=== PATIENT | female | born 1955 | race Caucasian/White ===

== ENCOUNTER 2020-10-26 21:16 | Emergency (ER) | payer BC ==
--- NOTE | 2020-10-26 22:13 | EDM.PDOC ---
ED HPI GENERAL MEDICAL PROBLEM - General Chief Complaint: Skin Complaint Stated Complaint: ALERGIC REACTION Time Seen by Provider: 10/26/20 21:39 Source of Information: Reports: Patient History Limitations: Reports: No Limitations - History of Present Illness INITIAL COMMENTS - FREE TEXT/NARRATIVE: Presents emergency room today due to concern about contrast dye reaction she sta renee that she had CT scanning done yesterday and today around noon she started noticing a rash she said it did not even occur to her until around 2 PM when she took an Emli she denies any respiratory symptoms no shortness of breath difficulty breathing wheezing no throat symptoms or oral swelling symptoms she says her only concern is related to a facial rash arm rash shoulders she is not sick she says it does not include her abdomen back or legs at this point. Based on previous episodes when she had PET scans done she said she had the same type of reaction and she did not think that it would happen with the CT dye PMHhypertension glaucoma endometrial clear cell carcinoma Medlisinopril and timolol optic to the right eye Medication allergysulfa denies--tob/etoh/drug use Onset: Today, Sudden - Related Data Allergies Allergy/AdvReac Type Severity Reaction Status Date / Time Iodinated Contrast Media AdvReac Hives Verified 10/26/20 21:31 [Iodinated Contrast- Oral and IV Dye] Sulfa (Sulfonamide AdvReac Hives Verified 10/26/20 21:31 Antibiotics) Home Meds: Home Meds Timolol [Betimol] 1 drop EYERT DAILY 11/20/18 [History] lisinopriL [Lisinopril] 20 mg PO DAILY 10/26/20 [History] Past Medical History HEENT History: Reports: Impaired Vision Cardiovascular History: Reports: Hypertension Musculoskeletal History: Reports: Other (See Below) Other Musculoskeletal History: right knee pain Oncologic (Cancer) History: Reports: Other (See Below) Other Oncologic History: endometrial - Infectious Disease History Infectious Disease History: Reports: Chicken Pox - Past Surgical History Head Surgeries/Procedures: Reports: None HEENT Surgical History: Reports: None Cardiovascular Surgical History: Reports: None Musculoskeletal Surgical History: Reports: None Oncologic Surgical History: Reports: None Dermatological Surgical History: Reports: None Social & Family History - Tobacco Use Tobacco Use Status *Q: Never Tobacco User Second Hand Smoke Exposure: No - Caffeine Use Caffeine Use: Reports: None - Recreational Drug Use Recreational Drug Use: No ED ROS GENERAL - Review of Systems Review Of Systems: Comprehensive ROS is negative, except as noted in HPI. Constitutional: Reports: No Symptoms HEENT: Reports: No Symptoms Respiratory: Reports: No Symptoms. Denies: Shortness of Breath, Wheezing, Cough Cardiovascular: Reports: No Symptoms Endocrine: Reports: No Symptoms GI/Abdominal: Reports: No Symptoms : Reports: No Symptoms Musculoskeletal: Reports: No Symptoms Skin: Reports: Pruritis, Rash Neurological: Reports: No Symptoms Psychiatric: Reports: No Symptoms Hematologic/Lymphatic: Reports: No Symptoms Immunologic: Reports: No Symptoms ED EXAM, SKIN/RASH Exam: See Below Exam Limited By: No Limitations General Appearance: Alert, WD/WN, No Apparent Distress Eye Exam: Bilateral Eye: EOMI, Normal Inspection, PERRL Ears: Normal External Exam, Hearing Grossly Normal Nose: Normal Inspection Throat/Mouth: Normal Inspection, Normal Oropharynx, Normal Voice, No Airway Compromise Head: Atraumatic, Normocephalic Neck: Normal Inspection, Supple, Full Range of Motion Respiratory/Chest: No Respiratory Distress, Lungs Clear (No wheezes noted with forced expiration), Normal Breath Sounds Cardiovascular: Normal Peripheral Pulses, Regular Rate, Rhythm, No Edema, No Murmur Peripheral Pulses: 2+: Radial (L), Radial (R) GI/Abdominal: Normal Bowel Sounds, Soft, Non-Tender (Female) Exam: Deferred Rectal (Female) Exam: Deferred Back Exam: Normal Inspection (No evidence of rash on the back although posterior upper shoulder area does have some minimal whelps raised areas) Extremities: No Pedal Edema, Normal Capillary Refill, Other (As noted rash maculopapular nature to upper extremities and shoulder area up into the neck no lower extremity involvement is noted) Neurological: Alert, Oriented, Normal Cognition, No Motor/Sensory Deficits Psychiatric: Normal Affect, Normal Mood Skin: Warm, Dry, Intact, Normal Color, Rash (Maculopapular rash to upper extremity shoulder area and facial areas and neck) Course - Vital Signs Text/Narrative:: Joe with patient home care measures to include Benadryl [id number] 1 to 2 tablets may be used every 6 hours but cautioned against drowsiness as a side effect may want to only use Benadryl at night and use Meli in the morning. Is generally will give patient a prednisone burst is recommended that she take initial dose tonight but tomorrow take dose before noon and then in the morning thereafter to decrease side effect of sleep interruption patient verbalized understanding agree with plan of care ready for discharge Last Recorded V/S: Last Vital Signs Temp 98.4 F 10/26/20 21:32 Pulse 90 10/26/20 21:32 Resp 14 10/26/20 21:32 BP 143/83 H 10/26/20 21:32 Pulse Ox 97 10/26/20 21:32 Departure - Departure Time of Disposition: 22:15 Disposition: Home, Self-Care 01 Condition: Good Clinical Impression: Allergic reaction to contrast dye, Rash due to allergy - Discharge Information *PRESCRIPTION DRUG MONITORING PROGRAM REVIEWED*: Not Applicable *COPY OF PRESCRIPTION DRUG MONITORING REPORT IN PATIENT JESSICA: Not Applicable Instructions: Drug Rash, Rash, Adult, [id number] Referrals: Byron Saini MD [Primary Care Provider] - Additional Instructions: As discussed it is recommended that you use Benadryl [id number] may use 1 to 2 tablets every 6 hours although this may cause some excessive drowsiness. That she may want to use 1 to 2 tablets at bedtime. And use your Meli in the morning for daytime control. Additionally you can use [id number] Pepcid or famotidine--this is typically used for stomach/reflux symptoms but it is also an antihistamine and when used in combination with Benadryl or Meli he may get better antihistamine effects I provided you with a prescription for prednisone that you may obtain out of the [facility] start prescription tonight, tomorrow take that dose before noon and then thereafter every morning with breakfast Please note that contrast dye will be placed as a medication allergy at this time on your chart. It is determined you needed scans that utilize a contrast dye that you discuss with your family physician/primary care provider premedication post medications Sepsis Event Note (ED) - Evaluation Sepsis Screening Result: No Definite Risk - Focused Exam Vital Signs: Vital Signs Temp Pulse Resp BP Pulse Ox 10/26/20 21:32 98.4 F 90 14 143/83 H 97 10/26/20 21:29 98.4 F 90 14 143/83 H 97
== END 2020-10-26 22:30 | disposition home or self-care (01) ==
LOC: JP.ED 21:16
DX: L27.1 Localized skin eruption due to drugs and medicaments taken internally (principal); T50.8X5A Adverse effect of diagnostic agents, initial encounter; I10 Essential (primary) hypertension; Z88.2 Allergy status to sulfonamides; Z79.899 Other long term (current) drug therapy
CPT/HCPCS: 99283

== ENCOUNTER 2020-12-05 17:07 | Emergency (ER) | payer BC ==
[2020-12-05] MEDS ORDERED: Sodium Chloride 0.9% 1,000 ML IV STA (17:44)
--- NOTE | 2020-12-05 18:03 | EDM.PDOC ---
ED HPI GENERAL MEDICAL PROBLEM - General Chief Complaint: General Stated Complaint: SURGERY November, TODAY CHILLS, FEVER, VOMITING Time Seen by Provider: 12/05/20 17:29 Source of Information: Reports: Patient History Limitations: Reports: No Limitations - History of Present Illness INITIAL COMMENTS - FREE TEXT/NARRATIVE: 65 presents to ER with 24 hours of chills, N/V. She is 3 weeks post surgery where her vagina, bladder and competed hysterectomy was completed. All was going well until yesterday. She has had normal bowel movements until 2 days ago and has not had a BM since. Urine is collected in Urostomy and has been very dark in color since procedure. She did have flank pain last week mild in nature. afebrile. - Related Data Allergies Allergy/AdvReac Type Severity Reaction Status Date / Time Iodinated Contrast Media AdvReac Hives Verified 10/26/20 21:31 [Iodinated Contrast- Oral and IV Dye] Sulfa (Sulfonamide AdvReac Hives Verified 10/26/20 21:31 Antibiotics) Home Meds: Home Meds Timolol [Betimol] 1 drop EYERT DAILY 11/20/18 [History] lisinopriL [Lisinopril] 20 mg PO DAILY 10/26/20 [History] Acetaminophen [Tylenol Extra Strength] 1,000 mg PO Q6H PRN 12/05/20 [History] Apixaban [Eliquis] 2.5 mg PO BID 12/05/20 [History] Ondansetron [Zofran ODT] 4 mg PO Q6H PRN 12/05/20 [History] polyethylene glycoL 3350 [Glycolax] 17 gm PO ASDIRECTED PRN 12/05/20 [History] Past Medical History HEENT History: Reports: Impaired Vision Cardiovascular History: Reports: Hypertension Musculoskeletal History: Reports: Other (See Below) Other Musculoskeletal History: right knee pain Oncologic (Cancer) History: Reports: Bladder, Uterine Other Oncologic History: endometrial - Infectious Disease History Infectious Disease History: Reports: Chicken Pox - Past Surgical History Head Surgeries/Procedures: Reports: None HEENT Surgical History: Reports: None Cardiovascular Surgical History: Reports: None Musculoskeletal Surgical History: Reports: None Oncologic Surgical History: Reports: None Dermatological Surgical History: Reports: None Social & Family History - Tobacco Use Tobacco Use Status *Q: Never Tobacco User - Caffeine Use Caffeine Use: Reports: Soda - Recreational Drug Use Recreational Drug Use: No ED ROS GENERAL - Review of Systems Review Of Systems: See Below Constitutional: Reports: Chills, Fatigue. Denies: Fever Respiratory: Denies: Shortness of Breath, Wheezing Cardiovascular: Denies: Chest Pain GI/Abdominal: Reports: Abdominal Pain ED EXAM, GENERAL - Physical Exam Exam: See Below Exam Limited By: No Limitations General Appearance: Alert, WD/WN, No Apparent Distress Head: Atraumatic, Normocephalic Neck: Normal Inspection, Supple, Non-Tender, Full Range of Motion. No: Lymphadenopathy (R), Lymphadenopathy (L) Respiratory/Chest: No Respiratory Distress, Lungs Clear, Normal Breath Sounds, No Accessory Muscle Use, Chest Non-Tender. No: Crackles, Rhonchi, Wheezing Cardiovascular: No Murmur, Tachycardia GI/Abdominal: Soft, No Distention, Tender (generalized), Abnormal Bowel Sounds (hypoactive), Other (incision healing non tender to palpate, no erythema. ) ED GENERAL MEDICAL PROCEDURES - Splinting Right Lower Extremity Pre-procedure NV status: Normal Post-procedure NV status: Normal Splint Type: Pre-Fabricated Splint Material: Other (pre-fabricated ankle stirrup) Splint Design: Stirrup Applied & Form Fitted By: Nurse Provider Post-Splint Application NV Check: NV Status Normal, Good Position Complications: No Course - Vital Signs Last Recorded V/S: Last Vital Signs Temp 36.8 C 12/05/20 20:41 Pulse 119 H 12/05/20 22:21 Resp 20 12/05/20 20:41 BP 127/77 12/05/20 22:21 Pulse Ox 96 12/05/20 22:21 - Orders/Labs/Meds Orders: Active Orders 24 hr Category Date Time Status CULTURE BLOOD [BC] Urgent Lab 12/05/20 17:55 Received CULTURE BLOOD [BC] Urgent Lab 12/05/20 18:08 Received CULTURE URINE [RM] Urgent Lab 12/05/20 20:04 Received Sodium Chloride 0.9% [Normal Saline] 1,000 ml Med 12/05/20 20:15 Active IV ASDIRECTED Blood Culture x2 Reflex Set [OM.PC] Urgent Oth 12/05/20 17:44 Ordered Medication Orders Sodium Chloride (Normal Saline) 1,000 mls @ 175 mls/hr IV ASDIRECTED FIDENCIO Last Admin: 12/05/20 20:07 Dose: 175 mls/hr Documented by: SAGAR Labs: Laboratory Tests 12/05/20 12/05/20 12/05/20 Range/Units 17:55 17:55 17:55 WBC 18.9 H (4.5-11.0) K/uL RBC 3.23 L (3.30-5.50) M/uL Hgb 9.0 L (12.0-15.0) g/dL Hct 28.2 L (36.0-48.0) % MCV 87 (80-98) fL MCH 28 (27-31) pg MCHC 32 (32-36) % Plt Count 595 H (150-400) K/uL Neut % (Auto) 83.9 H (36-66) % Lymph % (Auto) 6.0 L (24-44) % [place] % (Auto) 9.7 H (2-6) % Eos % (Auto) 0.2 L (2-4) % Baso % (Auto) 0.2 (0-1) % Sodium 136 L (140-148) mmol/L Potassium 4.5 (3.6-5.2) mmol/L Chloride 104 (100-108) mmol/L Carbon Dioxide 17 L (21-32) mmol/L Anion Gap 19.5 H (5.0-14.0) mmol/L BUN 30 H (7-18) mg/dL Creatinine 1.7 H (0.6-1.0) mg/dL Est Cr Clr Drug Dosing 26.79 mL/min Estimated GFR (MDRD) 30 L (>60) Glucose 127 H (74-106) mg/dL Lactic Acid 0.6 (0.4-2.0) mmol/L Calcium 9.3 (8.5-10.1) mg/dL Total Bilirubin 0.3 (0.2-1.0) mg/dL AST 11 L (15-37) U/L ALT 22 (12-78) U/L Alkaline Phosphatase 133 H (46-116) U/L Total Protein 7.5 (6.4-8.2) g/dL Albumin 2.4 L (3.4-5.0) g/dL Globulin 5.1 H (2.3-3.5) g/dL Albumin/Globulin Ratio 0.5 L (1.2-2.2) Urine Color (YELLOW) Urine Appearance (CLEAR) Urine pH (5.0-8.0) Ur Specific [place] (1.008-1.030) Urine Protein (NEGATIVE) mg/dL Urine Glucose (UA) (NEGATIVE) mg/dL Urine Ketones (NEGATIVE) mg/dL Urine Occult Blood (NEGATIVE) Urine Nitrite (NEGATIVE) Urine Bilirubin (NEGATIVE) Urine Urobilinogen (0.2-1.0) EU/dL Ur Leukocyte Esterase (NEGATIVE) Urine RBC (0-5) Urine WBC (0-5) Ur Epithelial Cells Amorphous Sediment Urine Bacteria Urine Mucus 12/05/20 Range/Units 20:04 WBC (4.5-11.0) K/uL RBC (3.30-5.50) M/uL Hgb (12.0-15.0) g/dL Hct (36.0-48.0) % MCV (80-98) fL MCH (27-31) pg MCHC (32-36) % Plt Count (150-400) K/uL Neut % (Auto) (36-66) % Lymph % (Auto) (24-44) % [place] % (Auto) (2-6) % Eos % (Auto) (2-4) % Baso % (Auto) (0-1) % Sodium (140-148) mmol/L Potassium (3.6-5.2) mmol/L Chloride (100-108) mmol/L Carbon Dioxide (21-32) mmol/L Anion Gap (5.0-14.0) mmol/L BUN (7-18) mg/dL Creatinine (0.6-1.0) mg/dL Est Cr Clr Drug Dosing mL/min Estimated GFR (MDRD) (>60) Glucose (74-106) mg/dL Lactic Acid (0.4-2.0) mmol/L Calcium (8.5-10.1) mg/dL Total Bilirubin (0.2-1.0) mg/dL AST (15-37) U/L ALT (12-78) U/L Alkaline Phosphatase (46-116) U/L Total Protein (6.4-8.2) g/dL Albumin (3.4-5.0) g/dL Globulin (2.3-3.5) g/dL Albumin/Globulin Ratio (1.2-2.2) Urine Color Yellow (YELLOW) Urine Appearance Cloudy A (CLEAR) Urine pH 7.0 (5.0-8.0) Ur Specific [place] 1.020 (1.008-1.030) Urine Protein 100 H (NEGATIVE) mg/dL Urine Glucose (UA) Negative (NEGATIVE) mg/dL Urine Ketones Negative (NEGATIVE) mg/dL Urine Occult Blood Moderate H (NEGATIVE) Urine Nitrite Negative (NEGATIVE) Urine Bilirubin Negative (NEGATIVE) Urine Urobilinogen 0.2 (0.2-1.0) EU/dL Ur Leukocyte Esterase Large H (NEGATIVE) Urine RBC 50-75 H (0-5) Urine WBC 50-75 H (0-5) Ur Epithelial Cells Rare Amorphous Sediment Numerous Urine Bacteria Moderate Urine Mucus Not seen Meds: Medications Generic Name Dose Route Start Last Admin Trade Name Freq PRN Reason Stop Dose Admin Sodium Chloride 1,000 mls @ 175 mls/hr 12/05/20 20:15 12/05/20 20:07 Normal Saline IV 175 mls/hr ASDIRECTED FIDENCIO Administration Discontinued Medications Generic Name Dose Route Start Last Admin Trade Name Freq PRN Reason Stop Dose Admin Acetaminophen 1,000 mg 12/05/20 20:36 12/05/20 20:40 Acetaminophen 500 Mg Tab PO 12/05/20 20:37 1,000 mg ONETIME ONE Administration Sodium Chloride 1,000 mls @ 500 mls/hr 12/05/20 17:44 12/05/20 18:49 Normal Saline IV 12/05/20 19:43 500 mls/hr .BOLUS STA Administration Ceftriaxone Sodium 1 gm/ 50 mls @ 100 mls/hr 12/05/20 21:34 12/05/20 21:42 Sodium Chloride IV 12/05/20 22:03 100 mls/hr ONETIME ONE Administration Ondansetron HCl 4 mg 12/05/20 21:24 12/05/20 21:42 Ondansetron 4 Mg/2 Ml Sdv IVPUSH 12/05/20 21:25 4 mg ONETIME ONE Administration - Re-Assessments/Exams Free Text/Narrative Re-Assessment/Exam: 65 yo evaluated on arrival to the ER in mild distress. Nathalie team consulted. CT pelvic/ABD non contrast no acute abnormalities identified. UA positive for WBC and RBC with moderate bacteria. IV antibiotics Rocephin 1 G while in ER. She will be DCed on Keflex 500 mg twice daily for 7 days. she does have follow-up scheduled at [facility] on 12/05/20 21:49 12/05/20 22:00 12/05/20 22:29 Departure - Departure Time of Disposition: 22:32 Disposition: Home, Self-Care 01 Condition: Good Clinical Impression: UTI, Urinary tract infectious disease - Discharge Information *PRESCRIPTION DRUG MONITORING PROGRAM REVIEWED*: Not Applicable *COPY OF PRESCRIPTION DRUG MONITORING REPORT IN PATIENT JESSICA: Not Applicable Instructions: Urinary Tract Infection, Adult, [id number] Referrals: Byron Saini MD [Primary Care Provider] - Forms: ED Department Discharge Additional Instructions: Keflex 500 mg twice daily for 7 days zofran for nausea return to ER if worsened keep appt at [facility] Sepsis Event Note (ED) - Evaluation Sepsis Screening Result: Possible Sepsis Risk - Focused Exam Vital Signs: Vital Signs Temp Pulse Resp BP Pulse Ox 12/05/20 22:21 119 H 127/77 96 12/05/20 20:58 105 H 137/63 97 12/05/20 20:41 36.8 C 92 20 126/69 98 12/05/20 20:24 85 117/56 L 97 12/05/20 19:10 88 122/69 97 12/05/20 18:10 94 128/70 95 12/05/20 17:33 36.3 C 117 H 18 132/64 95 12/05/20 17:22 36.3 C 117 H 18 132/64 95 - My Orders Last 24 Hours: My Active Orders 12/05/20 17:44 Blood Culture x2 Reflex Set [OM.PC] Urgent 12/05/20 17:55 CULTURE BLOOD [BC] Urgent 12/05/20 18:08 CULTURE BLOOD [BC] Urgent 12/05/20 20:04 CULTURE URINE [RM] Urgent 12/05/20 20:15 Sodium Chloride 0.9% [Normal Saline] 1,000 ml IV ASDIRECTED - Assessment/Plan Last 24 Hours: My Active Orders 12/05/20 17:44 Blood Culture x2 Reflex Set [OM.PC] Urgent 12/05/20 17:55 CULTURE BLOOD [BC] Urgent 12/05/20 18:08 CULTURE BLOOD [BC] Urgent 12/05/20 20:04 CULTURE URINE [RM] Urgent 12/05/20 20:15 Sodium Chloride 0.9% [Normal Saline] 1,000 ml IV ASDIRECTED
[2020-12-05] MEDS ORDERED: Sodium Chloride 0.9% 1,000 ML IV SCH (20:15)
[2020-12-05] MEDS ORDERED: Acetaminophen 500 MG Tab PO ONE (20:36)
--- NOTE | 2020-12-05 21:18 | CRLCT ---
For Patients: As a result of the Century Cures Act, medical imaging exams and procedure reports are released immediately into your electronic medical record. You may view this report before your referring provider. If you have questions, please contact your health care provider. INDICATION: Nausea and vomiting. Status post total hysterectomy on November 10. Postoperative evaluation. CT ABDOMEN AND PELVIS WITHOUT CONTRAST TECHNIQUE: Multidetector CT imaging was performed through the abdomen and pelvis without intravenous contrast administration. Coronal and sagittal reconstructions were generated. COMPARISON: None. FINDINGS: Lower chest: Lung bases are clear aside from minimal linear scarring or subsegmental atelectasis at the left lung base. Liver: Within normal limits. Gallbladder and bile ducts: No gallbladder wall thickening or calcified gallstones. No biliary dilation identified. Pancreas: Unremarkable. Spleen: Normal. Adrenals: No nodules or masses. Kidneys, ureters, and urinary bladder: Status post cystectomy with bilateral ureteral-ileal diversion to an ileostomy over the right lower quadrant. Bilateral ureteral stents are present, extending distally through the urostomy. There is a small fat-containing parastomal hernia. Mild dilation of the intrarenal collecting systems, renal pelves, and proximal ureters is noted. No urinary tract stones. Gastrointestinal tract: Normal caliber bowel without wall thickening or obstruction. Vascular structures: Normal caliber abdominal aorta with trace atherosclerotic calcifications. Peritoneum: No free air, abscess, or significant free fluid. Lymph nodes: No pathologically enlarged nodes identified. Reproductive organs: Status post hysterectomy. Mild fat stranding in the low pelvis and presacral space, not unexpected in view of recent hysterectomy. No hematoma identified. Bones: Mild spinal degenerative changes. IMPRESSION: 1. No acute abnormality identified. No cause for the patient`s symptoms is demonstrated. 2. Status post hysterectomy. Mild postoperative fat stranding in the low pelvis and presacral space, not unexpected in view of recent hysterectomy. 3. Status post cystectomy with bilateral ureteral-ileal diversion. Bilateral stents are present and there is mild dilation of the intrarenal collecting systems and ureters bilaterally. 4. Nonacute additional findings as detailed above. TOMMY MENJIVAR MD [facility] Dictated by Joaquín Menjivar MD @ 12/05/2020 9:14:51 PM Please note that all CT scans at this facility use dose modulation, iterative reconstruction, and/or weight-based dosing when appropriate to reduce radiation dose to as low as reasonably achievable. Dictated by: Joaquín Menjivar MD @ 12/05/2020 21:16:27 (Electronically Signed)
[2020-12-05] MEDS ORDERED: Ondansetron 4 MG/2 ML SDV IVPUSH ONE (21:24)
[2020-12-05] MEDS ORDERED: cefTRIAXone 1 GM in Sodium Chloride 0.9% 50 ML IV ONE (21:34)
== END 2020-12-05 23:02 | disposition home or self-care (01) ==
LOC: JP.ED 17:07
DX: N39.0 Urinary tract infection, site not specified (principal); I10 Essential (primary) hypertension; Z90.710 Acquired absence of both cervix and uterus; Z79.01 Long term (current) use of anticoagulants; Z79.899 Other long term (current) drug therapy; Z91.041 Radiographic dye allergy status; Z88.2 Allergy status to sulfonamides
CPT/HCPCS: 36415; 74176; 80053; 81001; 83605; 85025; 87040; 87086; 87088; 87186; 96365; 96375; 99284; A9270; J0696; J2405; J7030

== ENCOUNTER 2021-02-21 11:38 | Emergency (ER) | payer BC ==
[2021-02-21] MEDS ORDERED: Ondansetron 4 MG Tab.DIS PO ONE (12:28)
--- NOTE | 2021-02-21 12:39 | EDM.PDOC ---
ED HPI GENERAL MEDICAL PROBLEM - General Chief Complaint: General Stated Complaint: COVID POSS./DYHYDRATION Time Seen by Provider: 02/21/21 12:25 Source of Information: Reports: Patient, Old Records, RN History Limitations: Reports: No Limitations - History of Present Illness INITIAL COMMENTS - FREE TEXT/NARRATIVE: 65 yo female with Covid was told by the [facility] to "go to the ER for IV fluids". She has not been seen for this illness by anyone having been dx'd with a rapid test at her work. Has had a fever. Complains today primarily of nausea and vomiting. Has a pHx of some pelvic cancer requiring a hysterectomy, but no radiation or chemo. No blood in her emesis. Onset: Gradual Duration: Day(s):, Getting Worse Location: Reports: Generalized Quality: Reports: Other (pain not reported) Severity: Moderate Improves with: Reports: None Worsens with: Reports: Eating Context: Reports: Other (See HPI) Associated Symptoms: Reports: Fever/Chills, Malaise, Nausea/Vomiting. 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 - Related Data Allergies Allergy/AdvReac Type Severity Reaction Status Date / Time Iodinated Contrast Media AdvReac Hives Verified 10/26/20 21:31 [Iodinated Contrast- Oral and IV Dye] Sulfa (Sulfonamide AdvReac Hives Verified 10/26/20 21:31 Antibiotics) Home Meds: Home Meds Timolol [Betimol] 1 drop EYERT DAILY 11/20/18 [History] lisinopriL [Lisinopril] 20 mg PO DAILY 10/26/20 [History] Acetaminophen [Tylenol Extra Strength] 1,000 mg PO Q6H PRN 12/05/20 [History] Ondansetron [Zofran ODT] 4 mg PO Q6H PRN 12/05/20 [History] Nitrofurantoin Monohyd/M-Cryst [Macrobid 100 mg Capsule] 100 mg PO Q12H #12 capsule 02/21/21 [Rx] Past Medical History HEENT History: Reports: Impaired Vision Cardiovascular History: Reports: Hypertension Musculoskeletal History: Reports: Other (See Below) Other Musculoskeletal History: right knee pain Oncologic (Cancer) History: Reports: Bladder, Uterine Other Oncologic History: endometrial - Infectious Disease History Infectious Disease History: Reports: Chicken Pox - Past Surgical History Head Surgeries/Procedures: Reports: None HEENT Surgical History: Reports: None Cardiovascular Surgical History: Reports: None Musculoskeletal Surgical History: Reports: None Oncologic Surgical History: Reports: None Dermatological Surgical History: Reports: None Social & Family History - Tobacco Use Tobacco Use Status *Q: Never Tobacco User - Caffeine Use Caffeine Use: Reports: Soda ED ROS GENERAL - Review of Systems Review Of Systems: See Below Constitutional: Reports: No Symptoms HEENT: Reports: No Symptoms Respiratory: Reports: No Symptoms Cardiovascular: Reports: No Symptoms GI/Abdominal: Reports: Nausea, Vomiting. Denies: Diarrhea, Distension, Hematemesis : Reports: No Symptoms Musculoskeletal: Reports: No Symptoms Skin: Reports: No Symptoms Neurological: Reports: No Symptoms ED EXAM, GENERAL - Physical Exam Exam: See Below Exam Limited By: No Limitations General Appearance: Alert, WD/WN, No Apparent Distress Eye Exam: Bilateral Eye: Normal Inspection Ears: Normal External Exam, Normal Canal, Hearing Grossly Normal Ear Exam: Bilateral Ear: Auricle Normal, Canal Normal Nose: Normal Inspection, No Blood Throat/Mouth: Normal Inspection, Normal Lips, Normal Oropharynx, Normal Voice, No Airway Compromise Head: Atraumatic, Normocephalic Neck: Normal Inspection Respiratory/Chest: No Respiratory Distress, Lungs Clear, Normal Breath Sounds, No Accessory Muscle Use Cardiovascular: Regular Rate, Rhythm, No Edema GI/Abdominal: Soft, Non-Tender, No Distention. No: Distended, Tender Back Exam: Normal Inspection Extremities: Normal Inspection Neurological: Alert, Oriented, CN II-XII Intact, Normal Cognition, No Motor/Sensory Deficits Psychiatric: Normal Affect, Normal Mood Skin Exam: Warm, Dry, Intact, Normal Color, No Rash Course - Vital Signs Last Recorded V/S: Last Vital Signs Temp 36.5 C 02/21/21 12:15 Pulse 70 02/21/21 13:43 Resp 16 02/21/21 12:15 BP 103/43 L 02/21/21 13:43 Pulse Ox 93 L 02/21/21 12:15 Orthostatic Blood Pressure [ 86/48 Standing] Orthostatic Blood Pressure [ 105/56 Sitting] Orthostatic Blood Pressure [ 112/62 Supine] - Orders/Labs/Meds Orders: Active Orders 24 hr Category Date Time Status Orthostatic Vital Signs [RC] ASDIRECTED Care 02/21/21 12:27 Active CULTURE URINE [RM] Stat Lab 02/21/21 12:59 Received Labs: Laboratory Tests 02/21/21 02/21/21 Range/Units 12:42 12:44 Sodium 132 L (140-148) mmol/L Potassium 3.6 (3.6-5.2) mmol/L Chloride 96 L (100-108) mmol/L Carbon Dioxide 22 (21-32) mmol/L Anion Gap 17.6 H (5.0-14.0) mmol/L BUN 24 H (7-18) mg/dL Creatinine 1.7 H (0.6-1.0) mg/dL Est Cr Clr Drug Dosing 28.02 mL/min Estimated GFR (MDRD) 30 L (>60) Glucose 121 H (74-106) mg/dL Calcium 7.8 L D (8.5-10.1) mg/dL Urine Color Yellow (YELLOW) Urine Appearance Cloudy A (CLEAR) Urine pH 6.0 (5.0-8.0) Ur Specific [place] 1.020 (1.008-1.030) Urine Protein 100 H (NEGATIVE) mg/dL Urine Glucose (UA) Negative (NEGATIVE) mg/dL Urine Ketones Negative (NEGATIVE) mg/dL Urine Occult Blood Small H (NEGATIVE) Urine Nitrite Positive H (NEGATIVE) Urine Bilirubin Negative (NEGATIVE) Urine Urobilinogen 0.2 (0.2-1.0) EU/dL Ur Leukocyte Esterase Small H (NEGATIVE) Urine RBC 10-20 H (0-5) Urine WBC 40-50 H (0-5) Ur Epithelial Cells Not seen Amorphous Sediment Not seen Urine Bacteria Many Urine Mucus Few Meds: Medications Discontinued Medications Generic Name Dose Route Start Last Admin Trade Name Freq PRN Reason Stop Dose Admin Sodium Chloride 1,000 mls @ 1,000 mls/hr 02/21/21 13:29 02/21/21 14:04 Normal Saline IV 02/21/21 14:28 1,000 mls/hr .BOLUS ONE Administration Ondansetron HCl 4 mg 02/21/21 12:28 02/21/21 12:43 Ondansetron 4 Mg Tab.Dis PO 02/21/21 12:29 4 mg ONETIME ONE Administration Departure - Departure Time of Disposition: 15:10 Disposition: Home, Self-Care 01 Condition: Fair Clinical Impression: COVID-19, Mild dehydration Nausea and vomiting Qualifiers: Vomiting type: unspecified Vomiting Intractability: non-intractable Qualified Code(s): R11.2 - Nausea with vomiting, unspecified - Discharge Information *PRESCRIPTION DRUG MONITORING PROGRAM REVIEWED*: Not Applicable *COPY OF PRESCRIPTION DRUG MONITORING REPORT IN PATIENT JESSICA: Not Applicable Instructions: COVID-19 Frequently Asked Questions Referrals: Byron Saini MD [Primary Care Provider] - Forms: ED Department Discharge Additional Instructions: Take Zofran every 6 hrs as needed for nausea control. Acetaminophen for fever. Isolate for 10 days to prevent spread. Talk to your doctor to see if he wants to order and schedule you for immunoglobulin therapy. Return as needed. Sepsis Event Note (ED) - Evaluation Sepsis Screening Result: No Definite Risk - Focused Exam Vital Signs: Vital Signs Temp Pulse Resp BP Pulse Ox 02/21/21 13:43 70 103/43 L 02/21/21 13:13 71 96/46 L 02/21/21 12:15 36.5 C 77 16 110/62 93 L - My Orders Last 24 Hours: My Active Orders 02/21/21 12:27 Orthostatic Vital Signs [RC] ASDIRECTED 02/21/21 12:59 CULTURE URINE [RM] Stat - Assessment/Plan Last 24 Hours: My Active Orders 02/21/21 12:27 Orthostatic Vital Signs [RC] ASDIRECTED 02/21/21 12:59 CULTURE URINE [RM] Stat
[2021-02-21] MEDS ORDERED: Sodium Chloride 0.9% 1,000 ML IV ONE (13:29)
== END 2021-02-21 15:17 | disposition home or self-care (01) ==
LOC: JP.ED 11:38
DX: U07.1 COVID-19 (principal); R11.2 Nausea with vomiting, unspecified; E86.0 Dehydration; I10 Essential (primary) hypertension; Z88.2 Allergy status to sulfonamides; Z88.8 Allergy status to other drugs, medicaments and biological substances
CPT/HCPCS: 36415; 80048; 81001; 87086; 87088; 87186; 99284; A9270; J7030

== ENCOUNTER 2021-02-23 18:14 | Inpatient (IN) | payer BC ==
[2021-02-23] MEDS ORDERED: Sodium Chloride 0.9% 10 ML Syringe FLUSH PRN (18:48)
--- NOTE | 2021-02-23 18:53 | EDM.PDOC ---
<KaterosanaLevy G - Last Filed: 02/23/21 19:43> ED HPI GENERAL MEDICAL PROBLEM - General Chief Complaint: Respiratory Problem Stated Complaint: COVID POSITIVE Time Seen by Provider: 02/23/21 18:45 Source of Information: Reports: Patient, Old Records, RN History Limitations: Reports: No Limitations - History of Present Illness INITIAL COMMENTS - FREE TEXT/NARRATIVE: 65 yo female presented to the ER 2 d ago with primarily nausea/vomiting. 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 She had not had Covid vaccines. She returned yesterday and had the BAM therapy. Today she returns with SOB and hypoxia. Her primary care provider is Dr. Saini. Her main complaint now is a mild cough and dizziness with standing. Her nausea is mostly gone. She does not feel SOB. Lives alone. Onset: Gradual Duration: Day(s):, Getting Worse Location: Reports: Chest Quality: Reports: Other (no pain) Severity: Mild (current symptoms) Improves with: Reports: None Worsens with: Reports: Other (time) Context: Reports: Other (See HPI) Associated Symptoms: Reports: Fever/Chills (gone), Other (weak/light-headed). 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) (none) - Related Data Allergies Allergy/AdvReac Type Severity Reaction Status Date / Time Iodinated Contrast Media AdvReac Hives Verified 10/26/20 21:31 [Iodinated Contrast- Oral and IV Dye] Sulfa (Sulfonamide AdvReac Hives Verified 10/26/20 21:31 Antibiotics) Home Meds: Home Meds Timolol [Betimol] 1 drop EYERT DAILY 11/20/18 [History] Acetaminophen [Tylenol Extra Strength] 1,000 mg PO Q6H PRN 12/05/20 [History] Ascorbic Acid [Vitamin C] 1,000 mg PO DAILY 02/23/21 [History] Casirivimab/Imdevimab [Regen-Cov 600-600 mg/10Ml (Eua)] 10 ml IV ASDIRECTED 02/23/21 [History] Cyanocobalamin (Vitamin B12) [Vitamin B-12] 2,500 mcg SL DAILY 02/23/21 [History] Zinc 50 mg PO DAILY PRN 02/23/21 [History] Past Medical History HEENT History: Reports: Impaired Vision Cardiovascular History: Reports: Hypertension Genitourinary History: Reports: Other (See Below) Other Genitourinary History: urinary stoma with drainage bag 11/2020 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 (See Below) Other CUSTOMER LOYALTY REPRESENTATIVE History: Vagina removed due to cancer Musculoskeletal History: Reports: Other (See Below) Other Musculoskeletal History: right knee pain Oncologic (Cancer) History: Reports: Bladder, Uterine Other Oncologic History: endometrial - Infectious Disease History Infectious Disease History: Reports: Chicken Pox - Past Surgical History Head Surgeries/Procedures: Reports: None HEENT Surgical History: Reports: None Cardiovascular Surgical History: Reports: None Female Surgical History: Reports: Cystectomy, Hysterectomy, Other (See Below) Other Female Surgeries/Procedures: November 2020 vagina and bladder removed along with hyst. Musculoskeletal Surgical History: Reports: None Oncologic Surgical History: Reports: None Dermatological Surgical History: Reports: None Social & Family History - Tobacco Use Tobacco Use Status *Q: Never Tobacco User - Caffeine Use Caffeine Use: Reports: None - Recreational Drug Use Recreational Drug Use: No ED ROS GENERAL - Review of Systems Review Of Systems: See Below Constitutional: Reports: Malaise, Weakness. Denies: Fever (gone) HEENT: Reports: No Symptoms Respiratory: Reports: Cough. Denies: Shortness of Breath (not aware), Wheezing, Pleuritic Chest Pain, Sputum, Hemoptysis Cardiovascular: Reports: Lightheadedness Endocrine: Reports: No Symptoms GI/Abdominal: Reports: No Symptoms : Reports: No Symptoms Musculoskeletal: Reports: No Symptoms Skin: Reports: No Symptoms Neurological: Reports: No Symptoms Psychiatric: Reports: No Symptoms ED EXAM, GENERAL - Physical Exam Exam: See Below Exam Limited By: No Limitations General Appearance: Alert, WD/WN, No Apparent Distress Eye Exam: Bilateral Eye: Normal Inspection Ears: Normal External Exam, Hearing Grossly Normal Ear Exam: Bilateral Ear: Auricle Normal Nose: Normal Inspection, No Blood Throat/Mouth: Normal Inspection, Normal Lips, Normal Oropharynx, Normal Voice, No Airway Compromise Head: Atraumatic, Normocephalic Neck: Normal Inspection Respiratory/Chest: No Respiratory Distress, Crackles (throughout). No: Lungs Clear, Normal Breath Sounds, Respiratory Distress, Rhonchi, Wheezing, Accessory Muscle Use Cardiovascular: Regular Rate, Rhythm, No Edema GI/Abdominal: Soft, Non-Tender Extremities: Normal Inspection Neurological: Alert, Oriented, CN II-XII Intact, Normal Cognition, No Motor/Sensory Deficits Psychiatric: Normal Affect, Normal Mood Skin Exam: Warm, Dry, Intact, Normal Color, No Rash Course - Radiology Interpretation Free Text/Narrative:: CXR-bilateral changes consistent with Covid Departure - Departure Disposition: Admitted As Inpatient 68 Condition: Fair Clinical Impression: COVID-19, Hypoxia, Mild dehydration, Cystitis - Discharge Information *PRESCRIPTION DRUG MONITORING PROGRAM REVIEWED*: Not Applicable *COPY OF PRESCRIPTION DRUG MONITORING REPORT IN PATIENT JESSICA: Not Applicable Referrals: Byron Saini MD [Primary Care Provider] - Forms: ED Department Discharge Sepsis Event Note (ED) - Evaluation Sepsis Screening Result: No Definite Risk <OfficerNemesio - Last Filed: 02/24/21 13:08> Course - Vital Signs Last Recorded V/S: Last Vital Signs Temp 97.1 F 02/23/21 18:39 Pulse 70 02/24/21 11:18 Resp 18 02/24/21 11:18 BP 97/43 L 02/24/21 10:16 Pulse Ox 91 L 02/24/21 11:18 - Orders/Labs/Meds Orders: Active Orders 24 hr Category Date Time Status Oxygen Therapy Adult [Oxygen Therapy, ED] [RC] Care 02/23/21 18:48 Active ASDIRECTED HEPATIC FUNCTION PANEL,[facility] [CHEM] DAILY Lab 02/24/21 20:00 Ordered HEPATIC FUNCTION PANEL,[facility] [CHEM] DAILY Lab 02/25/21 20:00 Ordered HEPATIC FUNCTION PANEL,[facility] [CHEM] DAILY Lab 02/26/21 20:00 Ordered HEPATIC FUNCTION PANEL,[facility] [CHEM] DAILY Lab 02/27/21 20:00 Ordered Sodium Chloride 0.9% [Saline Flush] Med 02/23/21 18:48 Active 10 ml FLUSH ASDIRECTED PRN Saline Lock Insert [OM.PC] Routine Oth 02/23/21 18:48 Ordered Medication Orders Sodium Chloride (Sodium Chloride 0.9% 10 Ml Syringe) 10 ml FLUSH ASDIRECTED PRN PRN Reason: Keep Vein Open Last Admin: 02/23/21 20:24 Dose: 10 ml Documented by: CHELSEA Labs: Laboratory Tests 02/23/21 02/23/2102/23/21 Range/Units 19:05 19:05 19:27 WBC 5.5 (4.5-11.0) K/uL RBC 4.70 (3.30-5.50) M/uL Hgb 12.9 D (12.0-15.0) g/dL Hct 40.9 (36.0-48.0) % MCV 87 (80-98) fL MCH 27 (27-31) pg MCHC 32 (32-36) % Plt Count 238 (150-400) K/uL Sodium 137 L (140-148) mmol/L Potassium 4.5 (3.6-5.2) mmol/L Chloride 101 (100-108) mmol/L Carbon Dioxide 21 (21-32) mmol/L Anion Gap 19.5 H (5.0-14.0) mmol/L BUN 29 H (7-18) mg/dL Creatinine 1.7 H (0.6-1.0) mg/dL Est Cr Clr Drug Dosing 26.79 mL/min Estimated GFR (MDRD) 30 L (>60) Glucose 139 H (74-106) mg/dL Lactic Acid (0.4-2.0) mmol/L Calcium 8.3 L (8.5-10.1) mg/dL Total Bilirubin (0.2-1.0) mg/dL Direct Bilirubin (0.0-0.2) mg/dL Indirect Bilirubin AST (15-37) U/L ALT (12-78) U/L Alkaline Phosphatase (46-116) U/L Total Protein (6.4-8.2) g/dL Albumin (3.4-5.0) g/dL Globulin (2.3-3.5) g/dL Albumin/Globulin Ratio (1.2-2.2) Procalcitonin ng/mL Urine Color Yellow (YELLOW) Urine Appearance Cloudy A (CLEAR) Urine pH 6.0 (5.0-8.0) Ur Specific [place] 1.020 (1.008-1.030) Urine Protein >=300 H (NEGATIVE) mg/dL Urine Glucose (UA) Negative (NEGATIVE) mg/dL Urine Ketones Negative (NEGATIVE) mg/dL Urine Occult Blood Small H (NEGATIVE) Urine Nitrite Negative (NEGATIVE) Urine Bilirubin Negative (NEGATIVE) Urine Urobilinogen 0.2 (0.2-1.0) EU/dL Ur Leukocyte Esterase Small H (NEGATIVE) Urine RBC 10-20 H (0-5) Urine WBC 40-50 H (0-5) Ur Epithelial Cells Few Amorphous Sediment Few Urine Bacteria Many Urine Mucus Not seen 02/23/21 02/24/21 02/24/21 Range/Units 19:53 09:00 09:00 WBC (4.5-11.0) K/uL RBC (3.30-5.50) M/uL Hgb (12.0-15.0) g/dL Hct (36.0-48.0) % MCV (80-98) fL MCH (27-31) pg MCHC (32-36) % Plt Count (150-400) K/uL Sodium (140-148) mmol/L Potassium (3.6-5.2) mmol/L Chloride (100-108) mmol/L Carbon Dioxide (21-32) mmol/L Anion Gap (5.0-14.0) mmol/L BUN (7-18) mg/dL Creatinine (0.6-1.0) mg/dL Est Cr Clr Drug Dosing mL/min Estimated GFR (MDRD) (>60) Glucose (74-106) mg/dL Lactic Acid 0.9 (0.4-2.0) mmol/L Calcium (8.5-10.1) mg/dL Total Bilirubin 0.2 (0.2-1.0) mg/dL Direct Bilirubin 0.06 (0.0-0.2) mg/dL Indirect Bilirubin TNP AST 109 H D (15-37) U/L ALT 80 H (12-78) U/L Alkaline Phosphatase 69 (46-116) U/L Total Protein 7.1 (6.4-8.2) g/dL Albumin 3.0 L (3.4-5.0) g/dL Globulin 4.1 H (2.3-3.5) g/dL Albumin/Globulin Ratio 0.7 L (1.2-2.2) Procalcitonin 0.44 ng/mL Urine Color (YELLOW) Urine Appearance (CLEAR) Urine pH (5.0-8.0) Ur Specific [place] (1.008-1.030) Urine Protein (NEGATIVE) mg/dL Urine Glucose (UA) (NEGATIVE) mg/dL Urine Ketones (NEGATIVE) mg/dL Urine Occult Blood (NEGATIVE) Urine Nitrite (NEGATIVE) Urine Bilirubin (NEGATIVE) Urine Urobilinogen (0.2-1.0) EU/dL Ur Leukocyte Esterase (NEGATIVE) Urine RBC (0-5) Urine WBC (0-5) Ur Epithelial Cells Amorphous Sediment Urine Bacteria Urine Mucus Meds: Medications Generic Name Dose Route Start Last Admin Trade Name Freq PRN Reason Stop Dose Admin Sodium Chloride 10 ml 02/23/21 18:48 02/23/21 20:24 Sodium Chloride 0.9% 10 Ml Syringe FLUSH 10 ml ASDIRECTED PRN Administration Keep Vein Open Discontinued Medications Generic Name Dose Route Start Last Admin Trade Name Freq PRN Reason Stop Dose Admin Ciprofloxacin 500 mg 02/23/21 19:42 02/23/21 20:24 Ciprofloxacin 500 Mg Tab PO 02/23/21 19:43 500 mg ONETIME ONE Administration Dexamethasone 8 mg 02/23/21 19:54 02/23/21 20:24 Dexamethasone 4 Mg/Ml Sdv IVPUSH 02/23/21 19:55 8 mg ONETIME ONE Administration Sodium Chloride 1,000 mls @ 1,000 mls/min 02/23/21 19:39 02/24/21 07:12 Normal Saline IV 02/23/21 19:40 Not Given .BOLUS ONE Remdesivir 200 mg/ Sodium 250 mls @ 250 mls/hr 02/23/21 19:53 02/23/21 21:02 Chloride IV 02/23/21 19:54 250 mls/hr ONETIME ONE Administration Departure - Departure Time of Disposition: 13:08 Condition: Fair Sepsis Event Note (ED) - Focused Exam Vital Signs: Vital Signs Pulse Resp BP Pulse Ox 02/24/21 11:18 70 18 91 L 02/24/21 10:16 69 97/43 L 97 02/24/21 08:14 70 106/58 L 91 L 02/24/21 07:06 60 114/59 L 92 L 02/24/21 03:21 84 18 115/62 95 02/24/21 02:11 70 18 99/43 L 95 - Assessment/Plan Plan: Took over care from Dr. Lerner at 8 AM Assessment Acuity = acute Site and laterality = viral syndrome with hypoxia Etiology = COVID-19 Manifestations = dyspnea, fever Location of injury = Home Lab values = CBC unremarkable creatinine elevated 1.7 consistent with acute on chronic renal failure stage G3 B lactic acid normal 0.9 AST 109 ALT at 80 consistent elevated liver enzymes procalcitonin slightly elevated 0.44 urinalysis reveals 10-20 RBCs consistent with hematuria as well as 40-50 WBCs consistent pyuria culture does grow out Enterobacter Plan Because of the current pandemic she has been in the emergency department, ho wever we did find a bed became available at this institution, discussed case with hospitalist who kindly agreed to come evaluate her in the emergency department for admission This note was dictated using [employer] voice recognition software please call with any questions on syntax or grammar.
[2021-02-23] MEDS ORDERED: Ciprofloxacin 500 MG Tab PO ONE (19:42)
[2021-02-23] MEDS ORDERED: REMDESIVIR 200 MG in Sodium Chloride 0.9% 250 ML IV ONE (19:53)
[2021-02-23] MEDS ORDERED: Dexamethasone 4 MG/ML SDV IVPUSH ONE (19:54)
[2021-02-23] MEDS: Sodium Chloride 0.9% 1,000 ML IV ONE (20:24)
[2021-02-24] MEDS: Sodium Chloride 0.9% 1,000 ML IV ONE (07:12)
--- NOTE | 2021-02-24 09:26 | CR ---
CHEST: Portable 02/23/2021 at 7:26 PM CLINICAL HISTORY:SOB, hypoxia, covid COMPARISON:None FINDINGS: Patient has a diffuse infiltrate in the left lung with some groundglass opacification. There is some minimal patchy density in the right. Heart size and pulmonary vascularity are normal Impression: Diffuse bilateral patchy and groundglass opacities left greater than right. This consistent with a pneumonitis.
--- NOTE | 2021-02-24 20:12 | PCM.HP.2 ---
H&P History of Present Illness - General Date of Service: 02/24/21 Admit Problem/Dx: Admission Diagnosis/Problem Admission Diagnosis/Problem Hypoxia Source of Information: Patient History Limitations: Reports: No Limitations - History of Present Illness Initial Comments - Free Text/Narative: Ms. Carter is a 65-year-old female with a recent history of recurrent uterine cancer and extensive surgery to remove her uterus and bladder presents with shortness of breath and hypoxia. She recently tested positive for COVID-19 at her work and was treated with [facility] outpatient. She had been to the emergency department 2 days ago with nausea and vomiting and was diagnosed with a urinary tract infection which they were treating with antibiotics. The culture from that visit grew Enterobacter. She does also have a recent history of stoma placement after the bladder surgery and has associated renal dysfunction. She is not vaccinated for COVID-19. - Related Data Allergies/Adverse Reactions: Allergies Allergy/AdvReac Type Severity Reaction Status Date / Time Iodinated Contrast Media AdvReac Hives Verified 10/26/20 21:31 [Iodinated Contrast- Oral and IV Dye] Sulfa (Sulfonamide AdvReac Hives Verified 10/26/20 21:31 Antibiotics) Home Medications: Home Meds Acetaminophen [Tylenol Extra Strength] 1,000 mg PO Q6H PRN 12/05/20 [History] Ascorbic Acid [Vitamin C] 1,000 mg PO DAILY 02/23/21 [History] Casirivimab/Imdevimab [Regen-Cov 600-600 mg/10Ml (Eua)] 10 ml IV ASDIRECTED 02/23/21 [History] Cyanocobalamin (Vitamin B12) [Vitamin B-12] 2,500 mcg SL DAILY 02/23/21 [H istory] Zinc 50 mg PO DAILY PRN 02/23/21 [History] Timolol Maleate/PF [Timolol Maleate 0.5% Eye Drop] 1 drop EYERT DAILY 02/24/21 [History] Past Medical History HEENT History: Reports: Impaired Vision Cardiovascular History: Reports: Hypertension Genitourinary History: Reports: Other (See Below) Other Genitourinary History: urinary stoma with drainage bag 11/2020 [employer] History: Reports: Other (See Below) Other OB/BYN History: Vagina removed due to cancer Musculoskeletal History: Reports: Other (See Below) Other Musculoskeletal History: right knee pain Oncologic (Cancer) History: Reports: Bladder, Uterine Other Oncologic History: endometrial - Infectious Disease History Infectious Disease History: Reports: Chicken Pox - Past Surgical History Head Surgeries/Procedures: Reports: None HEENT Surgical History: Reports: None Cardiovascular Surgical History: Reports: None Female Surgical History: Reports: Cystectomy, Hysterectomy, Other (See Below) Other Female Surgeries/Procedures: November 2020 vagina and bladder removed along with hyst. Musculoskeletal Surgical History: Reports: None Oncologic Surgical History: Reports: None Dermatological Surgical History: Reports: None Social & Family History - Family History Family Medical History: Unobtainable - Tobacco Use Tobacco Use Status *Q: Never Tobacco User Second Hand Smoke Exposure: No - Caffeine Use Caffeine Use: Reports: Soda - Recreational Drug Use Recreational Drug Use: No H&P Review of Systems - Review of Systems: Review Of Systems: See Below General: Reports: No Symptoms, Fever, Chills, Malaise, Fatigue HEENT: Reports: No Symptoms Pulmonary: Reports: Shortness of Breath Cardiovascular: Reports: No Symptoms Gastrointestinal: Reports: No Symptoms Genitourinary: Reports: Other (See HPI) Musculoskeletal: Reports: No Symptoms Skin: Reports: No Symptoms Psychiatric: Reports: No Symptoms Neurological: Reports: No Symptoms Exam - Exam Exam: See Below - Vital Signs Vital Signs: Last Vital Signs Temp 97.6 F 02/24/21 19:33 Pulse 65 02/24/21 19:33 Resp 16 02/24/21 19:33 BP 101/52 L 02/24/21 19:33 Pulse Ox 93 L 02/24/21 19:33 Weight: 142 lb - Exam Quality Assessment: Supplemental Oxygen General: Alert, Oriented, Cooperative, Mild Distress HEENT: Conjunctiva Clear, EOMI, Hearing Intact, Mucosa Moist & [place] Neck: Supple, Trachea Midline Lungs: Clear to Auscultation, Normal Respiratory Effort Cardiovascular: Regular Rate, Regular Rhythm GI/Abdominal Exam: Normal Bowel Sounds, Soft, Non-Tender, No Distention Extremities: Normal Inspection, Non-Tender, No Pedal Edema Skin: Warm, Dry, Intact Neuro Extensive - Mental Status: Alert, Oriented x3, Normal Mood/Affect, Normal Cognition, Memory Intact Psychiatric: Alert, Normal Affect, Normal Mood - Patient Data Lab Results Last 24 hrs: Laboratory Results - last 24 hr 1002/24/21 02/24/21 Range/Units 19:53 09:00 09:00 Lactic Acid 0.9 (0.4-2.0) mmol/L Total Bilirubin 0.2 (0.2-1.0) mg/dL Direct Bilirubin 0.06 (0.0-0.2) mg/dL Indirect Bilirubin TNP AST 109 H D (15-37) U/L ALT 80 H (12-78) U/L Alkaline Phosphatase 69 (46-116) U/L Total Protein 7.1 (6.4-8.2) g/dL Albumin 3.0 L (3.4-5.0) g/dL Globulin 4.1 H (2.3-3.5) g/dL Albumin/Globulin Ratio 0.7 L (1.2-2.2) Procalcitonin 0.44 ng/mL Result Diagrams: 02/23/21 19:05 02/23/21 19:05 Sepsis Event Note - Evaluation Sepsis Screening Result: No Definite Risk - Focused Exam Vital Signs: Vital Signs Temp Pulse Resp BP Pulse Ox 02/24/21 19:33 97.6 F 65 16 101/52 L 93 L 02/24/21 14:34 92 L 02/24/21 14:16 97.6 F 62 20 94/46 L 93 L 02/24/21 11:18 70 18 91 L 02/24/21 10:16 69 97/43 L 97 02/24/21 08:14 70 106/58 L 91 L - Problem List (1) COVID-19 SNOMED Code(s): 446610991 ICD Code: U07.1 - COVID-19 Status: Acute Current Visit: Yes (2) Hypoxia SNOMED Code(s): 096076178 ICD Code: R09.02 - HYPOXEMIA Status: Acute Current Visit: Yes (3) Complicated UTI (urinary tract infection) SNOMED Code(s): 38326259 ICD Code: N39.0 - URINARY TRACT INFECTION, SITE NOT SPECIFIED Status: Acute Current Visit: Yes Problem List Initiated/Reviewed/Updated: Yes Orders Last 24hrs: Active Orders 24 hr Category Date Time Status Admission Status [Patient Status] [ADT] Routine ADT 02/24/21 13:32 Active Oxygen Therapy [RC] PRN Care 02/24/21 15:43 Active Vital Signs [RC] Q4H Care 02/24/21 15:43 Active Heart Healthy Diet [DIET] Diet 02/24/21 Dinner Active BASIC METABOLIC PANEL,BMP [CHEM] Routine Lab 02/25/21 07:00 Ordered CBC W/O DIFF,HEMOGRAM [HEME] Routine Lab 02/25/21 07:00 Ordered HEPATIC FUNCTION PANEL,HFP [CHEM] DAILY Lab 02/24/21 20:00 Ordered HEPATIC FUNCTION PANEL,HFP [CHEM] DAILY Lab 02/25/21 20:00 Ordered HEPATIC FUNCTION PANEL,HFP [CHEM] DAILY Lab 02/26/21 20:00 Ordered HEPATIC FUNCTION PANEL,HFP [CHEM] DAILY Lab 02/27/21 20:00 Ordered Acetaminophen [TylenoL] Med 02/24/21 15:42 Active 650 mg PO Q4H PRN Enoxaparin [Lovenox] Med 02/24/21 21:00 Active 30 mg SUBCUT BEDTIME Nitrofurantoin [place]/Macrocryst [Macrobid] Med 02/24/21 21:00 Active 100 mg PO BID Remdesivir 100 mg Med 02/24/21 21:00 Active Sodium Chloride 0.9% [Normal Saline] 100 ml IV Q24H dexAMETHasone [Decadron] Med 02/24/21 21:00 Active 6 mg IVPUSH Q24H timoloL maleate [Timoptic 0.5% Ophth Soln] Med 02/25/21 09:00 Active 0 ml EYERT DAILY Medication Orders Acetaminophen (Acetaminophen 325 Mg Tab) 650 mg PO Q4H PRN PRN Reason: analgesia/fever Dexamethasone (Dexamethasone 4 Mg/Ml Sdv) 6 mg IVPUSH Q24H [facility] Stop: 03/06/21 21:01 Enoxaparin Sodium (Enoxaparin 30 Mg/0.3 Ml Syringe) 30 mg SUBCUT BEDTIME [facility] Remdesivir 100 mg/ Sodium (Chloride) 100 mls @ 100 mls/hr IV Q24H [facility] Stop: 02/27/21 21:59 Nitrofurantoin Macrocrystals (Nitrofurantoin Monohydrate/Macrocrystalline 100 Mg Cap) 100 mg PO BID [facility] Stop: 03/01/21 21:01 Sodium Chloride (Sodium Chloride 0.9% 10 Ml Syringe) 10 ml FLUSH ASDIRECTED PRN PRN Reason: Keep Vein Open Last Admin: 02/23/21 20:24 Dose: 10 ml Documented by: CHELSEA Timolol Maleate (Timolol Maleate 0.5% Ophth Soln 5 Ml Bottle) 0 ml EYERT DAILY [facility] Assessment/Plan Comment:: COVID-19 with hypoxia -Remdesivir loading dose plus additional 4 days -Enoxaparin 40 daily -Decadron 6 mg for 10 days -Supplementary oxygen to maintain obtain SPO2 greater than 90% Dehydration likely secondary to fever -We will be gentle with hydration and will start fluids if kidney function decreases or she is requiring less oxygen Complicated UTI with Enterobacter aerogenes -Nitrofurantoin twice daily for 5 days -Patient does have stoma secondary to bladder removal Chronic kidney disease -GFR 30 -Fluids as noted above -We will continue to monitor kidney function VTE prophylaxis: Enoxaparin GI prophylaxis: Not indicated Diet: Regular diet This patient is admitted for inpatient services and is medically appropriate meets medical necessity for inpatient admission. I reasonably expect the patient will require inpatient services that span a period of over 2 midnights. My rationale for medically necessary inpatient care will be found in the admission history and physical and progress notes. I reasonably expect the kenn lopes to be discharged or transferred within 96 hours after admission to this [facility]. Disposition: She will be able to go home with self-care at discharge Plan: Will give doses of remdesivir. We will supplement her oxygen as needed. We will continue antibiotics for the UTI. And we will monitor her kidney function. I may need to obtain records from the [facility] regarding the recent surgery she had. Anat Rahman, DO - Mortality Measure Prognosis:: Good
[2021-02-24] MEDS ORDERED: Enoxaparin 30 MG/0.3 ML Syringe SUBCUT SCH (21:00)
[2021-02-24] MEDS: Calcium Carbonate 500 MG Tab.Chew PO PRN (21:12)
[2021-02-24] MEDS: Dexamethasone 4 MG/ML SDV IVPUSH SCH (21:13)
[2021-02-24] MEDS: Nitrofurantoin Monohydrate/Macrocrystalline 100 MG Cap PO SCH (21:15)
[2021-02-24] MEDS: REMDESIVIR 100 MG in Sodium Chloride 0.9% 100 ML IV SCH (21:15)
[2021-02-25] MEDS: Timolol Maleate 0.5% Ophth Soln 5 ML Bottle EYERT SCH (08:16)
[2021-02-25] MEDS: Nitrofurantoin Monohydrate/Macrocrystalline 100 MG Cap PO SCH ×2 (08:16→20:52)
[2021-02-25] MEDS ORDERED: TIMOLOL EYERT SCH (09:00)
--- NOTE | 2021-02-25 19:09 | PCM.PN ---
- General Info Date of Service: 02/25/21 Admission Dx/Problem (Free Text): Admission Diagnosis/Problem Admission Diagnosis/Problem Hypoxia Subjective Update: Ms. Carter is doing okay today. She is requiring supplementary oxygen at increasing needs. She is also having significant lethargy but she also was not able to sleep last night. - Review of Systems General: Reports: Fatigue HEENT: Reports: No Symptoms Pulmonary: Reports: No Symptoms Cardiovascular: Reports: No Symptoms Gastrointestinal: Reports: No Symptoms Genitourinary: Reports: No Symptoms Musculoskeletal: Reports: No Symptoms Skin: Reports: No Symptoms Neurological: Reports: No Symptoms Psychiatric: Reports: No Symptoms - Patient Data Vitals - Most Recent: Last Vital Signs Temp 98.4 F 02/25/21 13:42 Pulse 68 02/25/21 13:42 Resp 18 02/25/21 13:42 BP 124/72 02/25/21 13:42 Pulse Ox 94 L 02/25/21 13:42 Weight - Most Recent: 142 lb I&O - Last 24 Hours: Intake & Output 02/25/21 02/25/21 02/25/21 06:59 14:59 22:59 Output Total 1500 Balance -1500 Lab Results Last 24 Hours: Laboratory Results - last 24 hr 02/24/21 02/25/21 02/25/21 Range/Units 20:00 07:12 07:12 WBC 6.3 (4.5-11.0) K/uL RBC 4.33 (3.30-5.50) M/uL Hgb 11.9 L (12.0-15.0) g/dL Hct 37.5 (36.0-48.0) % MCV 87 (80-98) fL MCH 28 (27-31) pg MCHC 32 (32-36) % Plt Count 290 (150-400) K/uL Sodium 140 (140-148) mmol/L Potassium 4.8 (3.6-5.2) mmol/L Chloride 104 (100-108) mmol/L Carbon Dioxide 23 (21-32) mmol/L Anion Gap 13.5 (5.0-14.0) mmol/L BUN 28 H (7-18) mg/dL Creatinine 1.1 H (0.6-1.0) mg/dL Est Cr Clr Drug Dosing 41.40 mL/min Estimated GFR (MDRD) 50 L (>60) Glucose 168 H (74-106) mg/dL Calcium 8.4 L (8.5-10.1) mg/dL Total Bilirubin 0.1 L 0.2 D (0.2-1.0) mg/dL Direct Bilirubin 0.08 0.10 (0.0-0.2) mg/dL Indirect Bilirubin TNP 0.10 AST 102 H 80 H (15-37) U/L ALT 90 H 85 H (12-78) U/L Alkaline Phosphatase 69 64 (46-116) U/L Total Protein 6.4 6.4 (6.4-8.2) g/dL Albumin 2.5 L 2.5 L (3.4-5.0) g/dL Globulin 3.9 H 3.9 H (2.3-3.5) g/dL Albumin/Globulin Ratio 0.6 L 0.6 L (1.2-2.2) Med Orders - Current: Current Medications Acetaminophen (Acetaminophen 325 Mg Tab) 650 mg PO Q4H PRN PRN Reason: analgesia/fever Calcium Carbonate/Glycine (Calcium Carbonate 500 Mg Tab.Chew) 500 mg PO Q2H PRN PRN Reason: Indigestion Last Admin: 02/24/21 21:12 Dose: 500 mg Documented by: Dexamethasone (Dexamethasone 4 Mg/Ml Sdv) 6 mg IVPUSH Q24H [facility] Stop: 03/06/21 21:01 Last Admin: 02/24/21 21:13 Dose: 6 mg Documented by: Enoxaparin Sodium (Enoxaparin 40 Mg/0.4 Ml Syringe) 40 mg SUBCUT BEDTIME [facility] Remdesivir 100 mg/ Sodium (Chloride) 100 mls @ 100 mls/hr IV Q24H [facility] Stop: 02/27/21 21:59 Last Admin: 02/24/21 21:15 Dose: 100 mls/hr Documented by: Nitrofurantoin Macrocrystals (Nitrofurantoin Monohydrate/Macrocrystalline 100 Mg Cap) 100 mg PO BID [facility] Stop: 03/01/21 21:01 Last Admin: 02/25/21 08:16 Dose: 100 mg Documented by: Sodium Chloride (Sodium Chloride 0.9% 10 Ml Syringe) 10 ml FLUSH ASDIRECTED PRN PRN Reason: Keep Vein Open Last Admin: 02/23/21 20:24 Dose: 10 ml Documented by: Timolol Maleate (Timolol Maleate 0.5% Ophth Soln 5 Ml Bottle) 0 ml EYERT DAILY [facility] Last Admin: 02/25/21 08:16 Dose: 1 drop Documented by: Discontinued Medications Ciprofloxacin (Ciprofloxacin 500 Mg Tab) 500 mg PO ONETIME ONE Stop: 02/23/21 19:43 Last Admin: 02/23/21 20:24 Dose: 500 mg Documented by: Dexamethasone (Dexamethasone 4 Mg/Ml Sdv) 8 mg IVPUSH ONETIME ONE Stop: 02/23/21 19:55 Last Admin: 02/23/21 20:24 Dose: 8 mg Documented by: Enoxaparin Sodium (Enoxaparin 30 Mg/0.3 Ml Syringe) 30 mg SUBCUT BEDTIME [facility] Last Admin: 02/24/21 21:12 Dose: 30 mg Documented by: Sodium Chloride (Normal Saline) 1,000 mls @ 1,000 mls/min IV .BOLUS ONE Stop: 02/23/21 19:40 Last Admin: 02/24/21 07:12 Dose: Not Given Documented by: Remdesivir 200 mg/ Sodium (Chloride) 250 mls @ 250 mls/hr IV ONETIME ONE Stop: 02/23/21 19:54 Last Admin: 02/23/21 21:02 Dose: 250 mls/hr Documented by: - Exam General: Alert, Oriented, Cooperative, No Acute Distress HEENT: Pupils Equal, EOMI, Mucous Membr. Moist/[place] Neck: Supple, Trachea Midline Lungs: Clear to Auscultation, Normal Respiratory Effort Cardiovascular: Regular Rate, Regular Rhythm GI/Abdominal Exam: Normal Bowel Sounds, Soft, Non-Tender, No Organomegaly, No Distention, No Abnormal Bruit, No Mass Extremities: Normal Inspection, Non-Tender, No Pedal Edema Skin: Warm, Dry, Intact Neurological: No New Focal Deficit Psy/Mental Status: Alert, Normal Affect, Normal Mood - Patient Data Lab Results Last 24 hrs: Laboratory Results - last 24 hr 02/24/21 02/25/21 02/25/21 Range/Units 20:00 07:12 07:12 WBC 6.3 (4.5-11.0) K/uL RBC 4.33 (3.30-5.50) M/uL Hgb 11.9 L (12.0-15.0) g/dL Hct 37.5 (36.0-48.0) % MCV 87 (80-98) fL MCH 28 (27-31) pg MCHC 32 (32-36) % Plt Count 290 (150-400) K/uL Sodium 140 (140-148) mmol/L Potassium 4.8 (3.6-5.2) mmol/L Chloride 104 (100-108) mmol/L Carbon Dioxide 23 (21-32) mmol/L Anion Gap 13.5 (5.0-14.0) mmol/L BUN 28 H (7-18) mg/dL Creatinine 1.1 H (0.6-1.0) mg/dL Est Cr Clr Drug Dosing 41.40 mL/min Estimated GFR (MDRD) 50 L (>60) Glucose 168 H (74-106) mg/dL Calcium 8.4 L (8.5-10.1) mg/dL Total Bilirubin 0.1 L 0.2 D (0.2-1.0) mg/dL Direct Bilirubin 0.08 0.10 (0.0-0.2) mg/dL Indirect Bilirubin TNP 0.10 AST 102 H 80 H (15-37) U/L ALT 90 H 85 H (12-78) U/L Alkaline Phosphatase 69 64 (46-116) U/L Total Protein 6.4 6.4 (6.4-8.2) g/dL Albumin 2.5 L 2.5 L (3.4-5.0) g/dL Globulin 3.9 H 3.9 H (2.3-3.5) g/dL Albumin/Globulin Ratio 0.6 L 0.6 L (1.2-2.2) Result Diagrams: 02/25/21 07:12 02/25/21 07:12 Sepsis Event Note - Evaluation Sepsis Screening Result: No Definite Risk - Focused Exam Vital Signs: Vital Signs Temp Pulse Resp BP Pulse Ox 02/25/21 13:42 98.4 F 68 18 124/72 94 L 02/25/21 12:12 95 02/25/21 07:23 93 L - Problem List & Annotations (1) COVID-19 SNOMED Code(s): 193690859 Code(s): U07.1 - COVID-19 Status: Acute Current Visit: Yes (2) Hypoxia SNOMED Code(s): 490061273 Code(s): R09.02 - HYPOXEMIA Status: Acute Current Visit: Yes (3) Complicated UTI (urinary tract infection) SNOMED Code(s): 86694593 Code(s): N39.0 - URINARY TRACT INFECTION, SITE NOT SPECIFIED Status: Acute Current Visit: Yes - Problem List Review Problem List Initiated/Reviewed/Updated: Yes - My Orders Last 24 Hours: My Active Orders 02/24/21 20:16 Calcium Carbonate [Tums] 500 mg PO Q2H PRN 02/24/21 21:00 Nitrofurantoin [place]/Macrocryst [Macrobid] 100 mg PO BID Remdesivir 100 mg Sodium Chloride 0.9% [Normal Saline] 100 ml IV Q24H dexAMETHasone [Decadron] 6 mg IVPUSH Q24H 02/25/21 09:00 timoloL maleate [Timoptic 0.5% Ophth Soln] 0 ml EYERT DAILY 02/25/21 21:00 Enoxaparin [Lovenox] 40 mg SUBCUT BEDTIME 02/26/21 07:00 BASIC METABOLIC PANEL,BMP [CHEM] Routine CBC W/O DIFF,HEMOGRAM [HEME] Routine HEPATIC FUNCTION PANEL,HFP [CHEM] DAILY 02/27/21 07:00 HEPATIC FUNCTION PANEL,HFP [CHEM] DAILY 02/28/21 07:00 HEPATIC FUNCTION PANEL,HFP [CHEM] DAILY 03/01/21 07:00 HEPATIC FUNCTION PANEL,HFP [CHEM] DAILY 03/02/21 07:00 HEPATIC FUNCTION PANEL,HFP [CHEM] DAILY 03/03/21 07:00 HEPATIC FUNCTION PANEL,HFP [CHEM] DAILY - Plan Plan:: COVID-19 with hypoxia -Remdesivir loading dose plus additional 4 days -Enoxaparin 40 daily -Decadron 6 mg for 10 days -Supplementary oxygen to maintain obtain SPO2 greater than 90% Dehydration likely secondary to fever -Improving with oral intake Complicated UTI with Enterobacter aerogenes -Nitrofurantoin twice daily for 5 days -Patient does have stoma secondary to bladder removal Acute kidney injury on chronic kidney disease -GFR 30 > 50 -Fluids as noted above -We will continue to monitor kidney function VTE prophylaxis: Enoxaparin GI prophylaxis: Not indicated Diet: Regular diet Disposition: She will be able to go home with self-care at discharge Plan: She continues to require increasing supplemental oxygen needs. We will continue with current plan of treatment. Her kidney function has improved. Anat Rahman, DO
[2021-02-25] MEDS: Enoxaparin 40 MG/0.4 ML Syringe SUBCUT SCH (20:52)
[2021-02-25] MEDS: Dexamethasone 4 MG/ML SDV IVPUSH SCH (20:53)
[2021-02-25] MEDS: REMDESIVIR 100 MG in Sodium Chloride 0.9% 100 ML IV SCH (20:53)
[2021-02-26] MEDS: Nitrofurantoin Monohydrate/Macrocrystalline 100 MG Cap PO SCH ×2 (08:15→21:16)
[2021-02-26] MEDS: Timolol Maleate 0.5% Ophth Soln 5 ML Bottle EYERT SCH (08:15)
[2021-02-26] MEDS: Acetaminophen 325 MG Tab PO PRN ×2 (11:11→21:39)
[2021-02-26] MEDS: Calcium Carbonate 500 MG Tab.Chew PO PRN ×2 (11:11→21:38)
[2021-02-26] MEDS: Cyanocobalamin (Vitamin B12) 1,000 MCG Tab PO SCH (14:23)
--- NOTE | 2021-02-26 17:17 | PCM.PN ---
- General Info Date of Service: 02/26/21 Admission Dx/Problem (Free Text): Admission Diagnosis/Problem Admission Diagnosis/Problem Hypoxia Subjective Update: Ms. Carter is doing well today. She is having no complaints. She is feeling better today than she did yesterday. - Review of Systems General: Reports: No Symptoms HEENT: Reports: No Symptoms Pulmonary: Reports: No Symptoms Cardiovascular: Reports: No Symptoms Gastrointestinal: Reports: No Symptoms Genitourinary: Reports: No Symptoms Musculoskeletal: Reports: No Symptoms Skin: Reports: No Symptoms Neurological: Reports: No Symptoms Psychiatric: Reports: No Symptoms - Patient Data Vitals - Most Recent: Last Vital Signs Temp 98.2 F 02/26/21 14:17 Pulse 66 02/26/21 14:17 Resp 18 02/26/21 14:17 BP 112/56 L 02/26/21 14:17 Pulse Ox 98 02/26/21 14:17 Weight - Most Recent: 142 lb I&O - Last 24 Hours: Intake & Output 02/26/21 02/26/21 02/26/21 06:59 14:59 22:59 Intake Total 1100 900 Output Total 1550 Balance 1100 -650 Lab Results Last 24 Hours: Laboratory Results - last 24 hr 02/26/21 02/26/21 Range/Units 04:20 04:20 WBC 6.1 (4.5-11.0) K/uL RBC 4.38 (3.30-5.50) M/uL Hgb 11.7 L (12.0-15.0) g/dL Hct 38.4 (36.0-48.0) % MCV 88 (80-98) fL MCH 27 (27-31) pg MCHC 31 L (32-36) % Plt Count 363 (150-400) K/uL Sodium 140 (140-148) mmol/L Potassium 4.8 (3.6-5.2) mmol/L Chloride 104 (100-108) mmol/L Carbon Dioxide 21 (21-32) mmol/L Anion Gap 15.1 H (5.0-14.0) mmol/L BUN 28 H (7-18) mg/dL Creatinine 1.0 (0.6-1.0) mg/dL Est Cr Clr Drug Dosing 45.54 mL/min Estimated GFR (MDRD) 56 L (>60) Glucose 156 H (74-106) mg/dL Calcium 8.2 L (8.5-10.1) mg/dL Total Bilirubin 0.2 (0.2-1.0) mg/dL Direct Bilirubin 0.10 (0.0-0.2) mg/dL Indirect Bilirubin 0.10 AST 80 H (15-37) U/L ALT 108 H (12-78) U/L Alkaline Phosphatase 64 (46-116) U/L Total Protein 6.3 L (6.4-8.2) g/dL Albumin 2.5 L (3.4-5.0) g/dL Globulin 3.8 H (2.3-3.5) g/dL Albumin/Globulin Ratio 0.7 L (1.2-2.2) Med Orders - Current: Current Medications Acetaminophen (Acetaminophen 325 Mg Tab) 650 mg PO Q4H PRN PRN Reason: analgesia/fever Last Admin: 02/26/21 11:11 Dose: 650 mg Documented by: Calcium Carbonate/Glycine (Calcium Carbonate 500 Mg Tab.Chew) 500 mg PO Q2H PRN PRN Reason: Indigestion Last Admin: 02/26/21 11:11 Dose: 500 mg Documented by: Cyanocobalamin (Cyanocobalamin (Vitamin B12) 1,000 Mcg Tab) 2,500 mcg PO DAILY [facility] Last Admin: 02/26/21 14:23 Dose: 2,500 mcg Documented by: Dexamethasone (Dexamethasone 4 Mg/Ml Sdv) 6 mg IVPUSH Q24H [facility] Stop: 03/06/21 21:01 Last Admin: 02/25/21 20:53 Dose: 6 mg Documented by: Enoxaparin Sodium (Enoxaparin 40 Mg/0.4 Ml Syringe) 40 mg SUBCUT BEDTIME [facility] Last Admin: 02/25/21 20:52 Dose: 40 mg Documented by: Remdesivir 100 mg/ Sodium (Chloride) 100 mls @ 100 mls/hr IV Q24H [facility] Stop: 02/27/21 21:59 Last Admin: 02/25/21 20:53 Dose: 100 mls/hr Documented by: Nitrofurantoin Macrocrystals (Nitrofurantoin Monohydrate/Macrocrystalline 100 Mg Cap) 100 mg PO BID [facility] Stop: 03/01/21 21:01 Last Admin: 02/26/21 08:15 Dose: 100 mg Documented by: Sodium Chloride (Sodium Chloride 0.9% 10 Ml Syringe) 10 ml FLUSH ASDIRECTED PRN PRN Reason: Keep Vein Open Last Admin: 02/23/21 20:24 Dose: 10 ml Documented by: Timolol Maleate (Timolol Maleate 0.5% Ophth Soln 5 Ml Bottle) 0 ml EYERT DAILY [facility] Last Admin: 02/26/21 08:15 Dose: 1 drop Documented by: Discontinued Medications Ciprofloxacin (Ciprofloxacin 500 Mg Tab) 500 mg PO ONETIME ONE Stop: 02/23/21 19:43 Last Admin: 02/23/21 20:24 Dose: 500 mg Documented by: Dexamethasone (Dexamethasone 4 Mg/Ml Sdv) 8 mg IVPUSH ONETIME ONE Stop: 02/23/21 19:55 Last Admin: 02/23/21 20:24 Dose: 8 mg Documented by: Enoxaparin Sodium (Enoxaparin 30 Mg/0.3 Ml Syringe) 30 mg SUBCUT BEDTIME [facility] Last Admin: 02/24/21 21:12 Dose: 30 mg Documented by: Sodium Chloride (Normal Saline) 1,000 mls @ 1,000 mls/min IV .BOLUS ONE Stop: 02/23/21 19:40 Last Admin: 02/24/21 07:12 Dose: Not Given Documented by: Remdesivir 200 mg/ Sodium (Chloride) 250 mls @ 250 mls/hr IV ONETIME ONE Stop: 02/23/21 19:54 Last Admin: 02/23/21 21:02 Dose: 250 mls/hr Documented by: - Exam General: Alert, Oriented HEENT: Pupils Equal, EOMI, Mucous Membr. Moist/[place] Neck: Supple, Trachea Midline Lungs: Clear to Auscultation, Normal Respiratory Effort Cardiovascular: Regular Rate, Regular Rhythm Back Exam: Normal Inspection Extremities: Normal Inspection, Non-Tender, No Pedal Edema Skin: Warm, Dry, Intact Neurological: No New Focal Deficit Psy/Mental Status: Alert, Normal Affect, Normal Mood - Patient Data Lab Results Last 24 hrs: Laboratory Results - last 24 hr 02/26/21 02/26/21 Range/Units 04:20 04:20 WBC 6.1 (4.5-11.0) K/uL RBC 4.38 (3.30-5.50) M/uL Hgb 11.7 L (12.0-15.0) g/dL Hct 38.4 (36.0-48.0) % MCV 88 (80-98) fL MCH 27 (27-31) pg MCHC 31 L (32-36) % Plt Count 363 (150-400) K/uL Sodium 140 (140-148) mmol/L Potassium 4.8 (3.6-5.2) mmol/L Chloride 104 (100-108) mmol/L Carbon Dioxide 21 (21-32) mmol/L Anion Gap 15.1 H (5.0-14.0) mmol/L BUN 28 H (7-18) mg/dL Creatinine 1.0 (0.6-1.0) mg/dL Est Cr Clr Drug Dosing 45.54 mL/min Estimated GFR (MDRD) 56 L (>60) Glucose 156 H (74-106) mg/dL Calcium 8.2 L (8.5-10.1) mg/dL Total Bilirubin 0.2 (0.2-1.0) mg/dL Direct Bilirubin 0.10 (0.0-0.2) mg/dL Indirect Bilirubin 0.10 AST 80 H (15-37) U/L ALT 108 H (12-78) U/L Alkaline Phosphatase 64 (46-116) U/L Total Protein 6.3 L (6.4-8.2) g/dL Albumin 2.5 L (3.4-5.0) g/dL Globulin 3.8 H (2.3-3.5) g/dL Albumin/Globulin Ratio 0.7 L (1.2-2.2) Result Diagrams: 02/26/21 04:20 02/26/21 04:20 Sepsis Event Note - Evaluation Sepsis Screening Result: No Definite Risk - Focused Exam Vital Signs: Vital Signs Temp Pulse Resp BP Pulse Ox 02/26/21 14:17 98.2 F 66 18 112/56 L 98 02/26/21 14:15 95 02/26/21 12:00 95 02/26/21 10:59 98.2 F 65 18 117/65 94 L 02/26/21 07:55 98.2 F 64 18 110/60 95 02/26/21 07:31 95 - Problem List & Annotations (1) COVID-19 SNOMED Code(s): 035286140 Code(s): U07.1 - COVID-19 Status: Acute Current Visit: Yes (2) Hypoxia SNOMED Code(s): 422237253 Code(s): R09.02 - HYPOXEMIA Status: Acute Current Visit: Yes - Problem List Review Problem List Initiated/Reviewed/Updated: Yes - My Orders Last 24 Hours: My Active Orders 02/25/21 21:00 Enoxaparin [Lovenox] 40 mg SUBCUT BEDTIME 02/26/21 15:00 Cyanocobalamin (Vitamin B12) [Vitamin B12] 2,500 mcg PO DAILY 02/27/21 07:00 HEPATIC FUNCTION PANEL,HFP [CHEM] DAILY 02/28/21 07:00 HEPATIC FUNCTION PANEL,HFP [CHEM] DAILY 03/01/21 07:00 HEPATIC FUNCTION PANEL,HFP [CHEM] DAILY 03/02/21 07:00 HEPATIC FUNCTION PANEL,HFP [CHEM] DAILY 03/03/21 07:00 HEPATIC FUNCTION PANEL,HFP [CHEM] DAILY - Plan Plan:: COVID-19 with hypoxia -Remdesivir loading dose plus additional 4 days -Enoxaparin 40 daily -Decadron 6 mg for 10 days -Supplementary oxygen to maintain obtain SPO2 greater than 90% Complicated UTI with Enterobacter aerogenes -Nitrofurantoin twice daily for 5 days -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 I told her that our goal is for her to complete the doses of remdesivir and to be off supplementary oxygen. I did let her know that if she is feeling better and has completed the remdesivir but still requiring less than 5 L of supplementary oxygen we would be able to send her home with an oxygen concentrator. Anat Rahmna,
[2021-02-26] MEDS: Enoxaparin 40 MG/0.4 ML Syringe SUBCUT SCH (21:15)
[2021-02-26] MEDS: Dexamethasone 4 MG/ML SDV IVPUSH SCH (21:16)
[2021-02-26] MEDS: REMDESIVIR 100 MG in Sodium Chloride 0.9% 100 ML IV SCH (21:17)
[2021-02-27] MEDS: Timolol Maleate 0.5% Ophth Soln 5 ML Bottle EYERT SCH (08:31)
[2021-02-27] MEDS: Nitrofurantoin Monohydrate/Macrocrystalline 100 MG Cap PO SCH ×2 (08:31→21:03)
[2021-02-27] MEDS: Cyanocobalamin (Vitamin B12) 1,000 MCG Tab PO SCH (08:32)
[2021-02-27] MEDS ORDERED: Benzonatate 100 MG Cap PO PRN (12:56)
[2021-02-27] MEDS ORDERED: guaiFENesin/Dextromethorphan 100-10 MG/5 ML Soln 10 ML Cup PO PRN (12:56)
--- NOTE | 2021-02-27 12:58 | PCM.PN ---
- General Info Date of Service: 02/27/21 Subjective Update: There were no acute events overnight. She still feels very weak and very tired. She thinks her shortness of breath is slightly better today. Mild intermittent cough which is nonproductive. No fevers. Oxygenation stable at 11 L of high flow nasal cannula. Tolerating treatment so far. Any activity causes significant dyspnea. Functional Status: Reports: Pain Controlled, Tolerating Diet - Review of Systems General: Reports: Weakness Pulmonary: Reports: Shortness of Breath, Cough - Patient Data Vitals - Most Recent: Last Vital Signs Temp 36.1 C 02/27/21 11:13 Pulse 61 02/27/21 11:13 Resp 18 02/27/21 11:13 BP 132/86 02/27/21 11:13 Pulse Ox 93 L 02/27/21 12:26 Weight - Most Recent: 64.41 kg I&O - Last 24 Hours: Intake & Output 02/26/21 02/27/21 02/27/21 22:59 06:59 14:59 Intake Total 340 555 656 Output Total 700 675 600 Balance -360 -120 56 Lab Results Last 24 Hours: Laboratory Results - last 24 hr 02/27/21 02/27/21 Range/Units 05:20 05:20 WBC 7.7 (4.5-11.0) K/uL RBC 4.54 (3.30-5.50) M/uL Hgb 12.2 (12.0-15.0) g/dL Hct 39.5 (36.0-48.0) % MCV 87 (80-98) fL MCH 27 (27-31) pg MCHC 31 L (32-36) % Plt Count 372 (150-400) K/uL Sodium 139 L (140-148) mmol/L Potassium 5.0 (3.6-5.2) mmol/L Chloride 104 (100-108) mmol/L Carbon Dioxide 23 (21-32) mmol/L Anion Gap 17.0 H (5.0-14.0) mmol/L BUN 32 H (7-18) mg/dL Creatinine 1.0 (0.6-1.0) mg/dL Est Cr Clr Drug Dosing 45.54 mL/min Estimated GFR (MDRD) 56 L (>60) Glucose 170 H (74-106) mg/dL Calcium 8.4 L (8.5-10.1) mg/dL Total Bilirubin 0.3 (0.2-1.0) mg/dL Direct Bilirubin 0.12 (0.0-0.2) mg/dL Indirect Bilirubin 0.18 AST 67 H (15-37) U/L ALT 121 H (12-78) U/L Alkaline Phosphatase 71 (46-116) U/L Total Protein 6.6 (6.4-8.2) g/dL Albumin 2.6 L (3.4-5.0) g/dL Globulin 4.0 H (2.3-3.5) g/dL Albumin/Globulin Ratio 0.7 L (1.2-2.2) Med Orders - Current: Current Medications Acetaminophen (Acetaminophen 325 Mg Tab) 650 mg PO Q4H PRN PRN Reason: analgesia/fever Last Admin: 02/26/21 21:39 Dose: 650 mg Documented by: Calcium Carbonate/Glycine (Calcium Carbonate 500 Mg Tab.Chew) 500 mg PO Q2H PRN PRN Reason: Indigestion Last Admin: 02/26/21 21:38 Dose: 500 mg Documented by: Cyanocobalamin (Cyanocobalamin (Vitamin B12) 1,000 Mcg Tab) 2,500 mcg PO DAILY [facility] Last Admin: 02/27/21 08:32 Dose: 2,500 mcg Documented by: Dexamethasone (Dexamethasone 4 Mg/Ml Sdv) 6 mg IVPUSH Q24H [facility] Stop: 03/06/21 21:01 Last Admin: 02/26/21 21:16 Dose: 6 mg Documented by: Enoxaparin Sodium (Enoxaparin 40 Mg/0.4 Ml Syringe) 40 mg SUBCUT BEDTIME [facility] Last Admin: 02/26/21 21:15 Dose: 40 mg Documented by: Remdesivir 100 mg/ Sodium (Chloride) 100 mls @ 100 mls/hr IV Q24H [facility] Stop: 02/27/21 21:59 Last Admin: 02/26/21 21:17 Dose: 100 mls/hr Documented by: Nitrofurantoin Macrocrystals (Nitrofurantoin Monohydrate/Macrocrystalline 100 Mg Cap) 100 mg PO BID [facility] Stop: 03/01/21 21:01 Last Admin: 02/27/21 08:31 Dose: 100 mg Documented by: Sodium Chloride (Sodium Chloride 0.9% 10 Ml Syringe) 10 ml FLUSH ASDIRECTED PRN PRN Reason: Keep Vein Open Last Admin: 02/23/21 20:24 Dose: 10 ml Documented by: Timolol Maleate (Timolol Maleate 0.5% Ophth Soln 5 Ml Bottle) 0 ml EYERT DAILY [facility] Last Admin: 02/27/21 08:31 Dose: 1 drop Documented by: Discontinued Medications Ciprofloxacin (Ciprofloxacin 500 Mg Tab) 500 mg PO ONETIME ONE Stop: 02/23/21 19:43 Last Admin: 02/23/21 20:24 Dose: 500 mg Documented by: Dexamethasone (Dexamethasone 4 Mg/Ml Sdv) 8 mg IVPUSH ONETIME ONE Stop: 02/23/21 19:55 Last Admin: 02/23/21 20:24 Dose: 8 mg Documented by: Enoxaparin Sodium (Enoxaparin 30 Mg/0.3 Ml Syringe) 30 mg SUBCUT BEDTIME [facility] Last Admin: 02/24/21 21:12 Dose: 30 mg Documented by: Sodium Chloride (Normal Saline) 1,000 mls @ 1,000 mls/min IV .BOLUS ONE Stop: 02/23/21 19:40 Last Admin: 02/24/21 07:12 Dose: Not Given Documented by: Remdesivir 200 mg/ Sodium (Chloride) 250 mls @ 250 mls/hr IV ONETIME ONE Stop: 02/23/21 19:54 Last Admin: 02/23/21 21:02 Dose: 250 mls/hr Documented by: - Exam Quality Assessment: Supplemental Oxygen General: Alert, Oriented, Cooperative, No Acute Distress Lungs: Normal Respiratory Effort, Crackles (moderate dry both lower lungs and few right mid lung ) Cardiovascular: Regular Rate, Regular Rhythm GI/Abdominal Exam: Soft, No Distention Extremities: No Pedal Edema. No: Increased Warmth Skin: Warm, Dry Psy/Mental Status: Alert, Normal Affect - Patient Data Lab Results Last 24 hrs: Laboratory Results - last 24 hr 02/27/21 02/27/21 Range/Units 05:20 05:20 WBC 7.7 (4.5-11.0) K/uL RBC 4.54 (3.30-5.50) M/uL Hgb 12.2 (12.0-15.0) g/dL Hct 39.5 (36.0-48.0) % MCV 87 (80-98) fL MCH 27 (27-31) pg MCHC 31 L (32-36) % Plt Count 372 (150-400) K/uL Sodium 139 L (140-148) mmol/L Potassium 5.0 (3.6-5.2) mmol/L Chloride 104 (100-108) mmol/L Carbon Dioxide 23 (21-32) mmol/L Anion Gap 17.0 H (5.0-14.0) mmol/L BUN 32 H (7-18) mg/dL Creatinine 1.0 (0.6-1.0) mg/dL Est Cr Clr Drug Dosing 45.54 mL/min Estimated GFR (MDRD) 56 L (>60) Glucose 170 H (74-106) mg/dL Calcium 8.4 L (8.5-10.1) mg/dL Total Bilirubin 0.3 (0.2-1.0) mg/dL Direct Bilirubin 0.12 (0.0-0.2) mg/dL Indirect Bilirubin 0.18 AST 67 H (15-37) U/L ALT 121 H (12-78) U/L Alkaline Phosphatase 71 (46-116) U/L Total Protein 6.6 (6.4-8.2) g/dL Albumin 2.6 L (3.4-5.0) g/dL Globulin 4.0 H (2.3-3.5) g/dL Albumin/Globulin Ratio 0.7 L (1.2-2.2) Result Diagrams: 02/27/21 05:20 02/27/21 05:20 Sepsis Event Note - Evaluation Sepsis Screening Result: No Definite Risk - Focused Exam Vital Signs: Vital Signs Temp Pulse Resp BP Pulse Ox 02/27/21 12:26 93 L 02/27/21 11:13 36.1 C 61 18 132/86 94 L 02/27/21 08:00 36.7 C 66 17 110/58 L 91 L 02/27/21 07:36 98 02/27/21 04:00 36.8 C 61 18 132/72 92 L - Problem List Review Problem List Initiated/Reviewed/Updated: Yes - My Orders Last 24 Hours: My Active Orders 02/27/21 12:56 Benzonatate [Tessalon Perles] 100 mg PO TID PRN Dextromethorphan/guaiFENesin [Robitussin DM] 10 ml PO Q4H PRN 02/27/21 12:57 Pulse Oximetry [RC] ASDIRECTED 02/28/21 05:00 C-REACTIVE PROTEIN [CHEM] Timed COMPREHENSIVE METABOLIC PN,CMP [CHEM] Timed D-DIMER QUANTITATIVE [COAG] Timed - Plan Plan:: COVID-19 pneumonia-complicated by acute respiratory failure with hypoxia. Still requiring high flow nasal cannula support. Weak and tired but seems to be stable to slightly better today. 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
[2021-02-27] MEDS: Dexamethasone 4 MG/ML SDV IVPUSH SCH (20:54)
[2021-02-27] MEDS: REMDESIVIR 100 MG in Sodium Chloride 0.9% 100 ML IV SCH (20:55)
[2021-02-27] MEDS: Enoxaparin 40 MG/0.4 ML Syringe SUBCUT SCH (21:01)
[2021-02-27] MEDS: Calcium Carbonate 500 MG Tab.Chew PO PRN (21:06)
[2021-02-27] MEDS: Acetaminophen 325 MG Tab PO PRN (22:32)
[2021-02-28] MEDS: Timolol Maleate 0.5% Ophth Soln 5 ML Bottle EYERT SCH (09:03)
[2021-02-28] MEDS: Nitrofurantoin Monohydrate/Macrocrystalline 100 MG Cap PO SCH (09:04)
[2021-02-28] MEDS: Cyanocobalamin (Vitamin B12) 1,000 MCG Tab PO SCH (09:04)
--- NOTE | 2021-02-28 13:36 | PCM.PN ---
- General Info Date of Service: 02/28/21 Subjective Update: No acute events overnight. No fevers. Oxygenation stable but still requiring high levels of high flow oxygen. She feels okay at rest and does feel a little better today than yesterday. Still quite short of breath with any activity. She feels weak and fatigued after walking to the bathroom and back. Appetite has been pretty good. Ostomy output has been stable. Tolerating treatment with steroids and remdesivir well. D-dimer is only mildly elevated and CRP is around 2. Functional Status: Reports: Pain Controlled, Tolerating Diet - Review of Systems General: Reports: Weakness. Denies: Fever Pulmonary: Reports: Shortness of Breath - Patient Data Vitals - Most Recent: Last Vital Signs Temp 36.7 C 02/28/21 11:00 Pulse 59 L 02/28/21 11:00 Resp 18 02/28/21 11:00 BP 120/75 02/28/21 11:00 Pulse Ox 94 L 02/28/21 13:01 Weight - Most Recent: 64.41 kg I&O - Last 24 Hours: Intake & Output 02/27/21 02/28/21 02/28/21 22:59 06:59 14:59 Intake Total 100 500 300 Output Total 450 1000 350 Balance -350 -500 -50 Lab Results Last 24 Hours: Laboratory Results - last 24 hr 02/28/21 02/28/21 Range/Units 05:55 05:55 D-Dimer, Quantitative 527.42 H (0.0-500.0) ng/mL Sodium 138 L (140-148) mmol/L Potassium 4.8 (3.6-5.2) mmol/L Chloride 102 (100-108) mmol/L Carbon Dioxide 22 (21-32) mmol/L Anion Gap 18.8 H (5.0-14.0) mmol/L BUN 30 H (7-18) mg/dL Creatinine 1.0 (0.6-1.0) mg/dL Est Cr Clr Drug Dosing 45.15 mL/min Estimated GFR (MDRD) 56 L (>60) Glucose 168 H (74-106) mg/dL Calcium 8.6 (8.5-10.1) mg/dL Total Bilirubin 0.4 (0.2-1.0) mg/dL AST 29 (15-37) U/L ALT 92 H (12-78) U/L Alkaline Phosphatase 77 (46-116) U/L C-Reactive Protein 1.13 H (0.0-0.3) mg/dL Total Protein 6.7 (6.4-8.2) g/dL Albumin 2.6 L (3.4-5.0) g/dL Globulin 4.1 H (2.3-3.5) g/dL Albumin/Globulin Ratio 0.6 L (1.2-2.2) Med Orders - Current: Current Medications Acetaminophen (Acetaminophen 325 Mg Tab) 650 mg PO Q4H PRN PRN Reason: analgesia/fever Last Admin: 02/27/21 22:32 Dose: 650 mg Documented by: Benzonatate (Benzonatate 100 Mg Cap) 100 mg PO TID PRN PRN Reason: Cough Calcium Carbonate/Glycine (Calcium Carbonate 500 Mg Tab.Chew) 500 mg PO Q2H PRN PRN Reason: Indigestion Last Admin: 02/27/21 21:06 Dose: 500 mg Documented by: Cyanocobalamin (Cyanocobalamin (Vitamin B12) 1,000 Mcg Tab) 2,500 mcg PO DAILY [facility] Last Admin: 02/28/21 09:04 Dose: 2,500 mcg Documented by: Dexamethasone (Dexamethasone 4 Mg/Ml Sdv) 6 mg IVPUSH Q24H [facility] Stop: 03/06/21 21:01 Last Admin: 02/27/21 20:54 Dose: 6 mg Documented by: Enoxaparin Sodium (Enoxaparin 40 Mg/0.4 Ml Syringe) 40 mg SUBCUT BEDTIME [facility] Last Admin: 02/27/21 21:01 Dose: 40 mg Documented by: Guaifenesin/Dextromethorphan (Guaifenesin/Dextromethorphan 100-10 Mg/5 Ml Soln 10 Ml Cup) 10 ml PO Q4H PRN PRN Reason: Cough Nitrofurantoin Macrocrystals (Nitrofurantoin Monohydrate/Macrocrystalline 100 Mg Cap) 100 mg PO BID [facility] Stop: 03/01/21 21:01 Last Admin: 02/28/21 09:04 Dose: 100 mg Documented by: Sodium Chloride (Sodium Chloride 0.9% 10 Ml Syringe) 10 ml FLUSH ASDIRECTED PRN PRN Reason: Keep Vein Open Last Admin: 02/23/21 20:24 Dose: 10 ml Documented by: Timolol Maleate (Timolol Maleate 0.5% Ophth Soln 5 Ml Bottle) 0 ml EYERT DAILY [facility] Last Admin: 02/28/21 09:03 Dose: 1 drop Documented by: Discontinued Medications Ciprofloxacin (Ciprofloxacin 500 Mg Tab) 500 mg PO ONETIME ONE Stop: 02/23/21 19:43 Last Admin: 02/23/21 20:24 Dose: 500 mg Documented by: Dexamethasone (Dexamethasone 4 Mg/Ml Sdv) 8 mg IVPUSH ONETIME ONE Stop: 02/23/21 19:55 Last Admin: 02/23/21 20:24 Dose: 8 mg Documented by: Enoxaparin Sodium (Enoxaparin 30 Mg/0.3 Ml Syringe) 30 mg SUBCUT BEDTIME [facility] Last Admin: 02/24/21 21:12 Dose: 30 mg Documented by: Sodium Chloride (Normal Saline) 1,000 mls @ 1,000 mls/min IV .BOLUS ONE Stop: 02/23/21 19:40 Last Admin: 02/24/21 07:12 Dose: Not Given Documented by: Remdesivir 200 mg/ Sodium (Chloride) 250 mls @ 250 mls/hr IV ONETIME ONE Stop: 02/23/21 19:54 Last Admin: 02/23/21 21:02 Dose: 250 mls/hr Documented by: Remdesivir 100 mg/ Sodium (Chloride) 100 mls @ 100 mls/hr IV Q24H [facility] Stop: 02/27/21 21:59 Last Admin: 02/27/21 20:55 Dose: 100 mls/hr Documented by: - Exam Quality Assessment: Supplemental Oxygen General: Alert, Oriented, Cooperative, No Acute Distress Lungs: Normal Respiratory Effort. No: Wheezing GI/Abdominal Exam: Soft, No Distention Extremities: No Pedal Edema. No: Increased Warmth Psy/Mental Status: Alert, Normal Affect - Patient Data Lab Results Last 24 hrs: Laboratory Results - last 24 hr 02/28/21 02/28/21 Range/Units 05:55 05:55 D-Dimer, Quantitative 527.42 H (0.0-500.0) ng/mL Sodium 138 L (140-148) mmol/L Potassium 4.8 (3.6-5.2) mmol/L Chloride 102 (100-108) mmol/L Carbon Dioxide 22 (21-32) mmol/L Anion Gap 18.8 H (5.0-14.0) mmol/L BUN 30 H (7-18) mg/dL Creatinine 1.0 (0.6-1.0) mg/dL Est Cr Clr Drug Dosing 45.15 mL/min Estimated GFR (MDRD) 56 L (>60) Glucose 168 H (74-106) mg/dL Calcium 8.6 (8.5-10.1) mg/dL Total Bilirubin 0.4 (0.2-1.0) mg/dL AST 29 (15-37) U/L ALT 92 H (12-78) U/L Alkaline Phosphatase 77 (46-116) U/L C-Reactive Protein 1.13 H (0.0-0.3) mg/dL Total Protein 6.7 (6.4-8.2) g/dL Albumin 2.6 L (3.4-5.0) g/dL Globulin 4.1 H (2.3-3.5) g/dL Albumin/Globulin Ratio 0.6 L (1.2-2.2) Result Diagrams: 02/27/21 05:20 02/28/21 05:55 Sepsis Event Note - Evaluation Sepsis Screening Result: No Definite Risk - Focused Exam Vital Signs: Vital Signs Temp Pulse Resp BP Pulse Ox 02/28/21 13:01 94 L 02/28/21 11:00 36.7 C 59 L 18 120/75 96 02/28/21 07:24 96 02/28/21 06:49 36.8 C 62 18 135/75 90 L 02/28/21 03:00 36.6 C 59 L 16 128/64 95 - Problem List Review Problem List Initiated/Reviewed/Updated: Yes - My Orders Last 24 Hours: My Active Orders 02/27/21 12:56 Benzonatate [Tessalon Perles] 100 mg PO TID PRN Dextromethorphan/guaiFENesin [Robitussin DM] 10 ml PO Q4H PRN 02/27/21 12:57 Pulse Oximetry [RC] ASDIRECTED - Plan Plan:: COVID-19 pneumonia-complicated by acute respiratory failure with hypoxia. Still requiring high flow nasal cannula support. Seems to be slowly improving. D- dimer is only mildly elevated and CRP is in the low range. -Remdesivir x5 days complete -Enoxaparin 40 daily -Decadron 6 mg for 10 days (day 6) -Supplementary oxygen to maintain obtain SPO2 greater than 90% -Prone ventilation as able -CRP and D-dimer every 2 to 3 days Complicated UTI with Enterobacter aerogenes-sensitivity showed intermediate sensitivity of the nitrofurantoin. -Discontinue nitrofurantoin -Start doxycycline for better coverage based on sensitivities Acute kidney injury on chronic kidney disease-improving -We will continue to monitor kidney function Maintenance issues- VTE prophylaxis: Enoxaparin GI prophylaxis: Not indicated Diet: Regular diet Disposition: I would anticipate that she will be able to go home possibly with home care at the time of discharge Ubaldo Melendez MD
[2021-02-28] MEDS: Acetaminophen 325 MG Tab PO PRN (18:09)
[2021-02-28] MEDS: Enoxaparin 40 MG/0.4 ML Syringe SUBCUT SCH (20:53)
[2021-02-28] MEDS: Dexamethasone 4 MG/ML SDV IVPUSH SCH (20:54)
[2021-02-28] MEDS: Doxycycline 100 MG Cap PO SCH (20:54)
[2021-03-01] MEDS: Cyanocobalamin (Vitamin B12) 1,000 MCG Tab PO SCH (09:34)
[2021-03-01] MEDS: Doxycycline 100 MG Cap PO SCH ×2 (09:34→20:10)
[2021-03-01] MEDS: Timolol Maleate 0.5% Ophth Soln 5 ML Bottle EYERT SCH (09:34)
--- NOTE | 2021-03-01 13:31 | PCM.PN ---
- General Info Date of Service: 03/01/21 Subjective Update: No acute events overnight. She thinks she is a little short of breath today. Strength is a little better today. She was able to walk to the bathroom and back without assistance. She does desaturate some with activity but not as intensely as yesterday. She rebounds faster. Appetite has been okay. Ostomy output is stable. No fevers. Functional Status: Reports: Pain Controlled, Tolerating Diet - Review of Systems General: Reports: Weakness - Patient Data Vitals - Most Recent: Last Vital Signs Temp 36.7 C 03/01/21 11:00 Pulse 64 03/01/21 11:00 Resp 16 03/01/21 11:00 BP 118/64 03/01/21 11:00 Pulse Ox 95 03/01/21 12:44 Weight - Most Recent: 64.41 kg I&O - Last 24 Hours: Intake & Output 02/28/21 03/01/21 03/01/21 22:59 06:59 14:59 Output Total 400 900 Balance -400 -900 Med Orders - Current: Current Medications Acetaminophen (Acetaminophen 325 Mg Tab) 650 mg PO Q4H PRN PRN Reason: analgesia/fever Last Admin: 02/28/21 18:09 Dose: 650 mg Documented by: Benzonatate (Benzonatate 100 Mg Cap) 100 mg PO TID PRN PRN Reason: Cough Calcium Carbonate/Glycine (Calcium Carbonate 500 Mg Tab.Chew) 500 mg PO Q2H PRN PRN Reason: Indigestion Last Admin: 02/27/21 21:06 Dose: 500 mg Documented by: Cyanocobalamin (Cyanocobalamin (Vitamin B12) 1,000 Mcg Tab) 2,500 mcg PO DAILY [facility] Last Admin: 03/01/21 09:34 Dose: 2,500 mcg Documented by: Dexamethasone (Dexamethasone 4 Mg/Ml Sdv) 6 mg IVPUSH Q24H [facility] Stop: 03/06/21 21:01 Last Admin: 02/28/21 20:54 Dose: 6 mg Documented by: Doxycycline Hyclate (Doxycycline 100 Mg Cap) 100 mg PO BID [facility] Last Admin: 03/01/21 09:34 Dose: 100 mg Documented by: Enoxaparin Sodium (Enoxaparin 40 Mg/0.4 Ml Syringe) 40 mg SUBCUT BEDTIME [facility] Last Admin: 02/28/21 20:53 Dose: 40 mg Documented by: Guaifenesin/Dextromethorphan (Guaifenesin/Dextromethorphan 100-10 Mg/5 Ml Soln 10 Ml Cup) 10 ml PO Q4H PRN PRN Reason: Cough Sodium Chloride (Sodium Chloride 0.9% 10 Ml Syringe) 10 ml FLUSH ASDIRECTED PRN PRN Reason: Keep Vein Open Last Admin: 02/23/21 20:24 Dose: 10 ml Documented by: Timolol Maleate (Timolol Maleate 0.5% Ophth Soln 5 Ml Bottle) 0 ml EYERT DAILY [facility] Last Admin: 03/01/21 09:34 Dose: 1 drop Documented by: Discontinued Medications Ciprofloxacin (Ciprofloxacin 500 Mg Tab) 500 mg PO ONETIME ONE Stop: 02/23/21 19:43 Last Admin: 02/23/21 20:24 Dose: 500 mg Documented by: Dexamethasone (Dexamethasone 4 Mg/Ml Sdv) 8 mg IVPUSH ONETIME ONE Stop: 02/23/21 19:55 Last Admin: 02/23/21 20:24 Dose: 8 mg Documented by: Enoxaparin Sodium (Enoxaparin 30 Mg/0.3 Ml Syringe) 30 mg SUBCUT BEDTIME [facility] Last Admin: 02/24/21 21:12 Dose: 30 mg Documented by: Sodium Chloride (Normal Saline) 1,000 mls @ 1,000 mls/min IV .BOLUS ONE Stop: 02/23/21 19:40 Last Admin: 02/24/21 07:12 Dose: Not Given Documented by: Remdesivir 200 mg/ Sodium (Chloride) 250 mls @ 250 mls/hr IV ONETIME ONE Stop: 02/23/21 19:54 Last Admin: 02/23/21 21:02 Dose: 250 mls/hr Documented by: Remdesivir 100 mg/ Sodium (Chloride) 100 mls @ 100 mls/hr IV Q24H [facility] Stop: 02/27/21 21:59 Last Admin: 02/27/21 20:55 Dose: 100 mls/hr Documented by: Nitrofurantoin Macrocrystals (Nitrofurantoin Monohydrate/Macrocrystalline 100 Mg Cap) 100 mg PO BID [facility] Stop: 03/01/21 21:01 Last Admin: 02/28/21 09:04 Dose: 100 mg Documented by: - Exam Quality Assessment: Supplemental Oxygen General: Alert, Oriented, Cooperative, No Acute Distress Lungs: Normal Respiratory Effort, Crackles (few both bases) Cardiovascular: Regular Rate, Regular Rhythm GI/Abdominal Exam: Soft, No Distention Extremities: No Pedal Edema. No: Increased Warmth Skin: Warm, Dry Psy/Mental Status: Alert, Normal Affect - Patient Data Result Diagrams: 02/27/21 05:20 02/28/21 05:55 Sepsis Event Note - Evaluation Sepsis Screening Result: No Definite Risk - Focused Exam Vital Signs: Vital Signs Temp Pulse Resp BP Pulse Ox 03/01/21 12:44 95 03/01/21 11:00 36.7 C 64 16 118/64 95 03/01/21 07:32 94 L 03/01/21 07:00 36.6 C 68 16 121/72 93 L 03/01/21 03:00 36.7 C 55 L 16 125/74 93 L - Problem List Review Problem List Initiated/Reviewed/Updated: Yes - My Orders Last 24 Hours: My Active Orders 02/28/21 21:00 Doxycycline [Vibramycin] 100 mg PO BID - Plan Plan:: ASSESSMENT AND PLAN- COVID-19 pneumonia-complicated by acute respiratory failure with hypoxia. Still requiring high flow nasal cannula support. Slowly improving based on symptoms and clinical status. Hopefully we can start to wean her supplemental oxygen in the next day or so. -Remdesivir x5 days complete -Enoxaparin 40 daily -Decadron 6 mg for 10 days (day 7) -Supplementary oxygen to maintain obtain SPO2 greater than 90% -Prone ventilation as able -CRP and D-dimer every 2 to 3 days Complicated UTI with Enterobacter aerogenes-sensitivity showed intermediate sensitivity of the nitrofurantoin. -Discontinue nitrofurantoin -Continue doxycycline for better coverage based on sensitivities Acute kidney injury on chronic kidney disease-kidney function at baseline. -We will continue to monitor kidney function Maintenance issues- VTE prophylaxis: Enoxaparin GI prophylaxis: Not indicated Diet: Regular diet Disposition: I would anticipate that she will be able to go home possibly with home care at the time of discharge Ubaldo Melendez MD
[2021-03-01] MEDS: Acetaminophen 325 MG Tab PO PRN (19:57)
[2021-03-01] MEDS: Enoxaparin 40 MG/0.4 ML Syringe SUBCUT SCH (20:09)
[2021-03-01] MEDS: Dexamethasone 4 MG/ML SDV IVPUSH SCH (20:09)
[2021-03-02] MEDS: Doxycycline 100 MG Cap PO SCH ×2 (08:56→20:08)
[2021-03-02] MEDS: Cyanocobalamin (Vitamin B12) 1,000 MCG Tab PO SCH (08:56)
[2021-03-02] MEDS: Timolol Maleate 0.5% Ophth Soln 5 ML Bottle EYERT SCH (08:56)
--- NOTE | 2021-03-02 11:32 | PCM.PN ---
- General Info Date of Service: 03/02/21 Subjective Update: No acute events overnight. Symptomatically feeling better today with less shortness of breath. No chest pain. Appetite has been good. She is able to get to the bathroom and back without assistance. Still requiring supplemental oxygen but we have been able to wean her down to 7 L. Functional Status: Reports: Pain Controlled, Tolerating Diet - Review of Systems General: Reports: Weakness - Patient Data Vitals - Most Recent: Last Vital Signs Temp 36.1 C 03/02/21 07:40 Pulse 58 L 03/02/21 07:40 Resp 18 03/02/21 10:10 BP 112/70 03/02/21 07:40 Pulse Ox 97 03/02/21 10:10 Weight - Most Recent: 64.41 kg I&O - Last 24 Hours: Intake & Output 03/01/21 03/02/21 03/02/21 22:59 06:59 14:59 Intake Total 500 Output Total 1000 Balance -500 Med Orders - Current: Current Medications Acetaminophen (Acetaminophen 325 Mg Tab) 650 mg PO Q4H PRN PRN Reason: analgesia/fever Last Admin: 03/01/21 19:57 Dose: 650 mg Documented by: Benzonatate (Benzonatate 100 Mg Cap) 100 mg PO TID PRN PRN Reason: Cough Calcium Carbonate/Glycine (Calcium Carbonate 500 Mg Tab.Chew) 500 mg PO Q2H PRN PRN Reason: Indigestion Last Admin: 02/27/21 21:06 Dose: 500 mg Documented by: Cyanocobalamin (Cyanocobalamin (Vitamin B12) 1,000 Mcg Tab) 2,500 mcg PO DAILY [facility] Last Admin: 03/02/21 08:56 Dose: 2,500 mcg Documented by: Dexamethasone (Dexamethasone 4 Mg/Ml Sdv) 6 mg IVPUSH Q24H [facility] Stop: 03/06/21 21:01 Last Admin: 03/01/21 20:09 Dose: 6 mg Documented by: Doxycycline Hyclate (Doxycycline 100 Mg Cap) 100 mg PO BID [facility] Last Admin: 03/02/21 08:56 Dose: 100 mg Documented by: Enoxaparin Sodium (Enoxaparin 40 Mg/0.4 Ml Syringe) 40 mg SUBCUT BEDTIME [facility] Last Admin: 03/01/21 20:09 Dose: 40 mg Documented by: Guaifenesin/Dextromethorphan (Guaifenesin/Dextromethorphan 100-10 Mg/5 Ml Soln 10 Ml Cup) 10 ml PO Q4H PRN PRN Reason: Cough Sodium Chloride (Sodium Chloride 0.9% 10 Ml Syringe) 10 ml FLUSH ASDIRECTED PRN PRN Reason: Keep Vein Open Last Admin: 02/23/21 20:24 Dose: 10 ml Documented by: Timolol Maleate (Timolol Maleate 0.5% Ophth Soln 5 Ml Bottle) 0 ml EYERT DAILY [facility] Last Admin: 03/02/21 08:56 Dose: 1 drop Documented by: Discontinued Medications Ciprofloxacin (Ciprofloxacin 500 Mg Tab) 500 mg PO ONETIME ONE Stop: 02/23/21 19:43 Last Admin: 02/23/21 20:24 Dose: 500 mg Documented by: Dexamethasone (Dexamethasone 4 Mg/Ml Sdv) 8 mg IVPUSH ONETIME ONE Stop: 02/23/21 19:55 Last Admin: 02/23/21 20:24 Dose: 8 mg Documented by: Enoxaparin Sodium (Enoxaparin 30 Mg/0.3 Ml Syringe) 30 mg SUBCUT BEDTIME [facility] Last Admin: 02/24/21 21:12 Dose: 30 mg Documented by: Sodium Chloride (Normal Saline) 1,000 mls @ 1,000 mls/min IV .BOLUS ONE Stop: 02/23/21 19:40 Last Admin: 02/24/21 07:12 Dose: Not Given Documented by: Remdesivir 200 mg/ Sodium (Chloride) 250 mls @ 250 mls/hr IV ONETIME ONE Stop: 02/23/21 19:54 Last Admin: 02/23/21 21:02 Dose: 250 mls/hr Documented by: Remdesivir 100 mg/ Sodium (Chloride) 100 mls @ 100 mls/hr IV Q24H [facility] Stop: 02/27/21 21:59 Last Admin: 02/27/21 20:55 Dose: 100 mls/hr Documented by: Nitrofurantoin Macrocrystals (Nitrofurantoin Monohydrate/Macrocrystalline 100 Mg Cap) 100 mg PO BID [facility] Stop: 03/01/21 21:01 Last Admin: 02/28/21 09:04 Dose: 100 mg Documented by: - Exam Quality Assessment: Supplemental Oxygen General: Alert, Oriented, Cooperative, No Acute Distress Lungs: Normal Respiratory Effort GI/Abdominal Exam: Soft, No Distention Extremities: No Pedal Edema Psy/Mental Status: Alert, Normal Affect - Patient Data Result Diagrams: 02/27/21 05:20 02/28/21 05:55 Sepsis Event Note - Evaluation Sepsis Screening Result: No Definite Risk - Focused Exam Vital Signs: Vital Signs Temp Pulse Resp BP Pulse Ox 03/02/21 10:10 18 97 03/02/21 07:40 36.1 C 58 L 18 112/70 98 03/02/21 07:22 100 03/02/21 03:00 36.8 C 73 18 120/80 91 L 03/02/21 00:49 95 - Problem List Review Problem List Initiated/Reviewed/Updated: Yes - My Orders Last 24 Hours: My Active Orders 03/03/21 05:00 BASIC METABOLIC PANEL,BMP [CHEM] Timed CBC W/O DIFF,HEMOGRAM [HEME] Timed (1) CRP [C-REACTIVE PROTEIN] [CHEM] Timed D-DIMER QUANTITATIVE [COAG] Timed - Plan Plan:: ASSESSMENT AND PLAN- COVID-19 pneumonia-complicated by acute respiratory failure with hypoxia. Still requiring high flow nasal cannula support but we have been able to wean her down some. Slowly but steadily improving. -Remdesivir x5 days complete -Enoxaparin 40 daily -Decadron 6 mg for 10 days (day 8) -Supplementary oxygen to maintain obtain SPO2 greater than 90% -Prone ventilation as able -CRP and D-dimer every 2 to 3 days Complicated UTI with Enterobacter aerogenes-sensitivity showed intermediate sensitivity of the nitrofurantoin. -Continue doxycycline for better coverage based on sensitivities Acute kidney injury on chronic kidney disease-kidney function at baseline. -We will continue to monitor kidney function Maintenance issues- VTE prophylaxis: Enoxaparin GI prophylaxis: Not indicated Diet: Regular diet Disposition: I would anticipate that she will be able to go home possibly with home care at the time of discharge Ubaldo Melendez MD
[2021-03-02] MEDS: Enoxaparin 40 MG/0.4 ML Syringe SUBCUT SCH (20:08)
[2021-03-02] MEDS ORDERED: Dexamethasone 2 MG Tab PO SCH (21:00)
[2021-03-03] MEDS: Timolol Maleate 0.5% Ophth Soln 5 ML Bottle EYERT SCH (08:50)
[2021-03-03] MEDS: Doxycycline 100 MG Cap PO SCH ×2 (08:51→20:25)
[2021-03-03] MEDS: Cyanocobalamin (Vitamin B12) 1,000 MCG Tab PO SCH (08:51)
--- NOTE | 2021-03-03 14:50 | PCM.PN ---
- General Info Date of Service: 03/03/21 Subjective Update: No acute events overnight. Patient continues to feel better each day. Trips to the bathroom and back are getting easier and easier. Appetite has been good. W e have been able to wean her down to 3 L of supplemental oxygen. No fevers. D- dimer is normal. CRP improving but not quite normal. Functional Status: Reports: Pain Controlled, Tolerating Diet - Patient Data Vitals - Most Recent: Last Vital Signs Temp 36.8 C 03/03/21 11:44 Pulse 77 03/03/21 11:44 Resp 17 03/03/21 11:44 BP 128/76 03/03/21 11:44 Pulse Ox 98 03/03/21 13:02 Weight - Most Recent: 64.41 kg I&O - Last 24 Hours: Intake & Output 03/02/21 03/03/21 03/03/21 22:59 06:59 14:59 Intake Total 400 860 Output Total 1000 Balance -1000 400 860 Lab Results Last 24 Hours: Laboratory Results - last 24 hr 03/03/21 03/03/21 03/03/21 Range/Units 04:30 04:30 04:30 WBC 11.2 H (4.5-11.0) K/uL RBC 4.56 (3.30-5.50) M/uL Hgb 12.6 (12.0-15.0) g/dL Hct 40.2 (36.0-48.0) % MCV 88 (80-98) fL MCH 28 (27-31) pg MCHC 31 L (32-36) % Plt Count 514 H (150-400) K/uL D-Dimer, Quantitative 373.91 (0.0-500.0) ng/mL Sodium 137 L (140-148) mmol/L Potassium 5.3 H (3.6-5.2) mmol/L Chloride 102 (100-108) mmol/L Carbon Dioxide 23 (21-32) mmol/L Anion Gap 17.3 H (5.0-14.0) mmol/L BUN 37 H (7-18) mg/dL Creatinine 1.1 H (0.6-1.0) mg/dL Est Cr Clr Drug Dosing 41.04 mL/min Estimated GFR (MDRD) 50 L (>60) Glucose 184 H (74-106) mg/dL Calcium 8.8 (8.5-10.1) mg/dL C-Reactive Protein 1.22 H (0.0-0.3) mg/dL Med Orders - Current: Current Medications Acetaminophen (Acetaminophen 325 Mg Tab) 650 mg PO Q4H PRN PRN Reason: analgesia/fever Last Admin: 03/01/21 19:57 Dose: 650 mg Documented by: Benzonatate (Benzonatate 100 Mg Cap) 100 mg PO TID PRN PRN Reason: Cough Calcium Carbonate/Glycine (Calcium Carbonate 500 Mg Tab.Chew) 500 mg PO Q2H PRN PRN Reason: Indigestion Last Admin: 02/27/21 21:06 Dose: 500 mg Documented by: Cyanocobalamin (Cyanocobalamin (Vitamin B12) 1,000 Mcg Tab) 2,500 mcg PO DAILY [facility] Last Admin: 03/03/21 08:51 Dose: 2,500 mcg Documented by: Dexamethasone (Dexamethasone 2 Mg Tab) 6 mg PO BEDTIME [facility] Doxycycline Hyclate (Doxycycline 100 Mg Cap) 100 mg PO BID [facility] Last Admin: 03/03/21 08:51 Dose: 100 mg Documented by: Enoxaparin Sodium (Enoxaparin 40 Mg/0.4 Ml Syringe) 40 mg SUBCUT BEDTIME [facility] Last Admin: 03/02/21 20:08 Dose: 40 mg Documented by: Guaifenesin/Dextromethorphan (Guaifenesin/Dextromethorphan 100-10 Mg/5 Ml Soln 10 Ml Cup) 10 ml PO Q4H PRN PRN Reason: Cough Sodium Chloride (Sodium Chloride 0.9% 10 Ml Syringe) 10 ml FLUSH ASDIRECTED PRN PRN Reason: Keep Vein Open Last Admin: 02/23/21 20:24 Dose: 10 ml Documented by: Timolol Maleate (Timolol Maleate 0.5% Ophth Soln 5 Ml Bottle) 0 ml EYERT DAILY [facility] Last Admin: 03/03/21 08:50 Dose: 1 drop Documented by: Discontinued Medications Ciprofloxacin (Ciprofloxacin 500 Mg Tab) 500 mg PO ONETIME ONE Stop: 02/23/21 19:43 Last Admin: 02/23/21 20:24 Dose: 500 mg Documented by: Dexamethasone (Dexamethasone 4 Mg/Ml Sdv) 8 mg IVPUSH ONETIME ONE Stop: 02/23/21 19:55 Last Admin: 02/23/21 20:24 Dose: 8 mg Documented by: Dexamethasone (Dexamethasone 4 Mg/Ml Sdv) 6 mg IVPUSH Q24H [facility] Stop: 03/06/21 21:01 Last Admin: 03/01/21 20:09 Dose: 6 mg Documented by: Dexamethasone (Dexamethasone 2 Mg Tab) 6 mg PO DAILY [facility] Last Admin: 03/02/21 20:24 Dose: 6 mg Documented by: Enoxaparin Sodium (Enoxaparin 30 Mg/0.3 Ml Syringe) 30 mg SUBCUT BEDTIME [facility] Last Admin: 02/24/21 21:12 Dose: 30 mg Documented by: Sodium Chloride (Normal Saline) 1,000 mls @ 1,000 mls/min IV .BOLUS ONE Stop: 02/23/21 19:40 Last Admin: 02/24/21 07:12 Dose: Not Given Documented by: Remdesivir 200 mg/ Sodium (Chloride) 250 mls @ 250 mls/hr IV ONETIME ONE Stop: 02/23/21 19:54 Last Admin: 02/23/21 21:02 Dose: 250 mls/hr Documented by: Remdesivir 100 mg/ Sodium (Chloride) 100 mls @ 100 mls/hr IV Q24H [facility] Stop: 02/27/21 21:59 Last Admin: 02/27/21 20:55 Dose: 100 mls/hr Documented by: Nitrofurantoin Macrocrystals (Nitrofurantoin Monohydrate/Macrocrystalline 100 Mg Cap) 100 mg PO BID [facility] Stop: 03/01/21 21:01 Last Admin: 02/28/21 09:04 Dose: 100 mg Documented by: - Exam Quality Assessment: Supplemental Oxygen General: Alert, Oriented, Cooperative, No Acute Distress Lungs: Normal Respiratory Effort GI/Abdominal Exam: Soft, No Distention Extremities: No Pedal Edema Psy/Mental Status: Alert, Normal Affect - Patient Data Lab Results Last 24 hrs: Laboratory Results - last 24 hr 03/03/21 03/03/21 03/03/21 Range/Units 04:30 04:30 04:30 WBC 11.2 H (4.5-11.0) K/uL RBC 4.56 (3.30-5.50) M/uL Hgb 12.6 (12.0-15.0) g/dL Hct 40.2 (36.0-48.0) % MCV 88 (80-98) fL MCH 28 (27-31) pg MCHC 31 L (32-36) % Plt Count 514 H (150-400) K/uL D-Dimer, Quantitative 373.91 (0.0-500.0) ng/mL Sodium 137 L (140-148) mmol/L Potassium 5.3 H (3.6-5.2) mmol/L Chloride 102 (100-108) mmol/L Carbon Dioxide 23 (21-32) mmol/L Anion Gap 17.3 H (5.0-14.0) mmol/L BUN 37 H (7-18) mg/dL Creatinine 1.1 H (0.6-1.0) mg/dL Est Cr Clr Drug Dosing 41.04 mL/min Estimated GFR (MDRD) 50 L (>60) Glucose 184 H (74-106) mg/dL Calcium 8.8 (8.5-10.1) mg/dL C-Reactive Protein 1.22 H (0.0-0.3) mg/dL Result Diagrams: 03/03/21 04:30 03/03/21 04:30 Sepsis Event Note - Evaluation Sepsis Screening Result: No Definite Risk - Focused Exam Vital Signs: Vital Signs Temp Pulse Resp BP Pulse Ox Pulse Ox 03/03/21 13:02 98 03/03/21 11:44 36.8 C 77 17 128/76 94 L 03/03/21 09:00 96 03/03/21 08:00 96 03/03/21 07:30 36.6 C 69 17 122/78 93 L 03/03/21 07:19 96 - Problem List Review Problem List Initiated/Reviewed/Updated: Yes - Plan Plan:: ASSESSMENT AND PLAN- COVID-19 pneumonia-complicated by acute respiratory failure with hypoxia. Supplemental oxygen requirement persists but is steadily decreasing. Symptomatically she is feeling better each day. -Remdesivir x5 days complete -Enoxaparin 40 daily -Decadron 6 mg for 10 days (day 9) -Supplementary oxygen to maintain obtain SPO2 greater than 90% -Prone ventilation as able -CRP and D-dimer every 2 to 3 days Complicated UTI with Enterobacter aerogenes-sensitivity showed intermediate sensitivity of the nitrofurantoin. -Continue doxycycline for better coverage based on sensitivities Acute kidney injury on chronic kidney disease-kidney function at baseline. -We will continue to monitor kidney function Maintenance issues- VTE prophylaxis: Enoxaparin GI prophylaxis: Not indicated Diet: Regular diet Disposition: I would anticipate that she will be able to go home possibly with home care at the time of discharge Ubaldo Melendez MD
[2021-03-03] MEDS: Enoxaparin 40 MG/0.4 ML Syringe SUBCUT SCH (20:25)
[2021-03-03] MEDS: Dexamethasone 2 MG Tab PO SCH (20:25)
[2021-03-04] MEDS: Timolol Maleate 0.5% Ophth Soln 5 ML Bottle EYERT SCH (09:15)
[2021-03-04] MEDS: Cyanocobalamin (Vitamin B12) 1,000 MCG Tab PO SCH (09:16)
[2021-03-04] MEDS: Doxycycline 100 MG Cap PO SCH ×2 (09:16→21:18)
--- NOTE | 2021-03-04 14:24 | PCM.PN ---
- General Info Date of Service: 03/04/21 Subjective Update: No acute events overnight. Ongoing improvement with less shortness of breath and improved energy and endurance. Down to 1 L of oxygen as of this afternoon. No fevers. She is feeling well. She is hoping to get weaned off her oxygen and hopefully can go home tomorrow. Functional Status: Reports: Pain Controlled, Tolerating Diet - Review of Systems General: Denies: Weakness Pulmonary: Denies: Shortness of Breath - Patient Data Vitals - Most Recent: Last Vital Signs Temp 37.0 C 03/04/21 09:12 Pulse 82 03/04/21 11:30 Resp 16 03/04/21 11:30 BP 130/80 03/04/21 09:12 Pulse Ox 92 L 03/04/21 13:33 Weight - Most Recent: 64.41 kg I&O - Last 24 Hours: Intake & Output 03/03/21 03/04/21 03/04/21 22:59 06:59 14:59 Intake Total 940 920 Output Total 650 1300 Balance 290 -380 Med Orders - Current: Current Medications Acetaminophen (Acetaminophen 325 Mg Tab) 650 mg PO Q4H PRN PRN Reason: analgesia/fever Last Admin: 03/01/21 19:57 Dose: 650 mg Documented by: Benzonatate (Benzonatate 100 Mg Cap) 100 mg PO TID PRN PRN Reason: Cough Calcium Carbonate/Glycine (Calcium Carbonate 500 Mg Tab.Chew) 500 mg PO Q2H PRN PRN Reason: Indigestion Last Admin: 02/27/21 21:06 Dose: 500 mg Documented by: Cyanocobalamin (Cyanocobalamin (Vitamin B12) 1,000 Mcg Tab) 2,500 mcg PO DAILY [facility] Last Admin: 03/04/21 09:16 Dose: 2,500 mcg Documented by: Dexamethasone (Dexamethasone 2 Mg Tab) 6 mg PO BEDTIME [facility] Last Admin: 03/03/21 20:25 Dose: 6 mg Documented by: Doxycycline Hyclate (Doxycycline 100 Mg Cap) 100 mg PO BID [facility] Last Admin: 03/04/21 09:16 Dose: 100 mg Documented by: Enoxaparin Sodium (Enoxaparin 40 Mg/0.4 Ml Syringe) 40 mg SUBCUT BEDTIME [facility] Last Admin: 03/03/21 20:25 Dose: 40 mg Documented by: Guaifenesin/Dextromethorphan (Guaifenesin/Dextromethorphan 100-10 Mg/5 Ml Soln 1 0 Ml Cup) 10 ml PO Q4H PRN PRN Reason: Cough Sodium Chloride (Sodium Chloride 0.9% 10 Ml Syringe) 10 ml FLUSH ASDIRECTED PRN PRN Reason: Keep Vein Open Last Admin: 02/23/21 20:24 Dose: 10 ml Documented by: Timolol Maleate (Timolol Maleate 0.5% Ophth Soln 5 Ml Bottle) 0 ml EYERT DAILY [facility] Last Admin: 03/04/21 09:15 Dose: 1 drop Documented by: Discontinued Medications Ciprofloxacin (Ciprofloxacin 500 Mg Tab) 500 mg PO ONETIME ONE Stop: 02/23/21 19:43 Last Admin: 02/23/21 20:24 Dose: 500 mg Documented by: Dexamethasone (Dexamethasone 4 Mg/Ml Sdv) 8 mg IVPUSH ONETIME ONE Stop: 02/23/21 19:55 Last Admin: 02/23/21 20:24 Dose: 8 mg Documented by: Dexamethasone (Dexamethasone 4 Mg/Ml Sdv) 6 mg IVPUSH Q24H [facility] Stop: 03/06/21 21:01 Last Admin: 03/01/21 20:09 Dose: 6 mg Documented by: Dexamethasone (Dexamethasone 2 Mg Tab) 6 mg PO DAILY [facility] Last Admin: 03/02/21 20:24 Dose: 6 mg Documented by: Enoxaparin Sodium (Enoxaparin 30 Mg/0.3 Ml Syringe) 30 mg SUBCUT BEDTIME [facility] Last Admin: 02/24/21 21:12 Dose: 30 mg Documented by: Sodium Chloride (Normal Saline) 1,000 mls @ 1,000 mls/min IV .BOLUS ONE Stop: 02/23/21 19:40 Last Admin: 02/24/21 07:12 Dose: Not Given Documented by: Remdesivir 200 mg/ Sodium (Chloride) 250 mls @ 250 mls/hr IV ONETIME ONE Stop: 02/23/21 19:54 Last Admin: 02/23/21 21:02 Dose: 250 mls/hr Documented by: Remdesivir 100 mg/ Sodium (Chloride) 100 mls @ 100 mls/hr IV Q24H [facility] Stop: 02/27/21 21:59 Last Admin: 02/27/21 20:55 Dose: 100 mls/hr Documented by: Nitrofurantoin Macrocrystals (Nitrofurantoin Monohydrate/Macrocrystalline 100 Mg Cap) 100 mg PO BID [facility] Stop: 03/01/21 21:01 Last Admin: 02/28/21 09:04 Dose: 100 mg Documented by: - Exam Quality Assessment: Supplemental Oxygen General: Alert, Oriented, Cooperative, No Acute Distress Lungs: Normal Respiratory Effort GI/Abdominal Exam: Soft, No Distention Extremities: No Pedal Edema Psy/Mental Status: Alert, Normal Affect - Patient Data Result Diagrams: 03/03/21 04:30 03/03/21 04:30 Sepsis Event Note - Evaluation Sepsis Screening Result: No Definite Risk - Focused Exam Vital Signs: Vital Signs Temp Pulse Resp BP Pulse Ox 03/04/21 13:33 92 L 03/04/21 11:30 82 16 94 L 03/04/21 09:12 37.0 C 70 16 130/80 94 L 03/04/21 07:16 94 L - Problem List Review Problem List Initiated/Reviewed/Updated: Yes - Plan Plan:: ASSESSMENT AND PLAN- COVID-19 pneumonia-complicated by acute respiratory failure with hypoxia. Supplemental oxygen requirement persists but is steadily decreasing. Symptomatically she is feeling better each day. -Remdesivir x5 days complete -Enoxaparin 40 daily -Decadron 6 mg for 10 days (day 10) -Supplementary oxygen to maintain obtain SPO2 greater than 90%, wean as able -Prone ventilation as able Complicated UTI with Enterobacter aerogenes-sensitivity showed intermediate sensitivity of the nitrofurantoin. -Continue doxycycline for better coverage based on sensitivities Acute kidney injury on chronic kidney disease-kidney function at baseline. -We will continue to monitor kidney function Maintenance issues- VTE prophylaxis: Enoxaparin GI prophylaxis: Not indicated Diet: Regular diet Disposition: I would anticipate that she will be able to go home possibly with home care at the time of discharge. If she is stable overnight I would anticipate discharge tomorrow. Ubaldo Melendez MD
[2021-03-04] MEDS: Dexamethasone 2 MG Tab PO SCH (21:16)
[2021-03-04] MEDS: Enoxaparin 40 MG/0.4 ML Syringe SUBCUT SCH (21:17)
[2021-03-05] MEDS: Timolol Maleate 0.5% Ophth Soln 5 ML Bottle EYERT SCH (08:15)
[2021-03-05] MEDS: Cyanocobalamin (Vitamin B12) 1,000 MCG Tab PO SCH (08:15)
[2021-03-05] MEDS: Doxycycline 100 MG Cap PO SCH (08:16)
--- NOTE | 2021-03-05 12:51 | PCM.SN.2 ---
- Free Text/Narrative Note: 03/05/2021 Patient was noted to have an oxygen saturation of 93 to 94% on room air at rest. With a short ambulation around the room her oxygen levels dropped down to 87%. Walking with oxygen improves saturations back up to 92 to 93%. Ubaldo Melendez MD Time Documentation
--- NOTE | 2021-03-05 12:56 | PCM.DCSUM1 ---
Discharge Summary - Hospital Course Brief History: 65-year-old female with history of uterine and bladder cancer who presented with known Covid and increasing cough and weakness. She was admitted for management of COVID-19 pneumonia with acute respiratory failure and hypoxia. Diagnosis: Stroke: No - Discharge Data Discharge Date: 03/05/21 Discharge Disposition: Home, Self-Care 01 Condition: Fair - Referral to Home Health Primary Care Physician: Byron Saini MD - Discharge Diagnosis/Problem(s) (1) Pneumonia due to COVID-19 virus SNOMED Code(s): [id number] ICD Code: U07.1 - COVID-19; J12.82 - PNEUMONIA DUE TO CORONAVIRUS DISEASE 2018 Status: Acute Current Visit: Yes (2) Acute respiratory failure with hypoxia SNOMED Code(s): 12051689, 698620650 ICD Code: J96.01 - ACUTE RESPIRATORY FAILURE WITH HYPOXIA Status: Acute Current Visit: Yes - Patient Summary/Data Hospital Course: Sharron presented to the emergency room with nausea, vomiting, diarrhea, weakness and shortness of breath in the setting of known Covid infection. She was hypoxic. She was admitted to the hospital for further management. She was started on remdesivir and dexamethasone along with enoxaparin. She did have a moderate increase in supplemental oxygen requirements throughout the early course of the hospital stay. Supplemental oxygen requirements were as high as 12 L/min. Fortunately we have been able to wean down the supplemental oxygen as the second portion of the hospital stay has progressed. She completed 5 days of remdesivir and 10 days of dexamethasone. We have been able to wean her off of supplemental oxygen at rest but she does continue to be hypoxic with even minimal movement though this is relatively mild. She feels well enough to go home. Her appetite has been good strength is improving though she is quite weak from baseline. The plan is for her to go home with supplemental oxygen to use with activity. She tested positive on February 16 and would benefit from a 20-day quarantine given the severity of her symptoms. I did encourage her to use aspirin 81 mg daily for the next 2 weeks. Her D-dimer is normal so I did not prescribe a more potent systemic anticoagulation. Also noted during the hospital stay was evidence for a urinary tract infection. Initially she was on nitrofurantoin but the urine culture revealed that this was intermediate sensitivity. She was transitioned to doxycycline and has completed 5 days of therapy. [id number] encounter for home oxygen Date of encounter-03/05/2021 Sharron was evaluated in the hospital today for possible home oxygen use. Her oxygen levels were acceptable at rest but did drop to 87% with activity. They did improve with supplemental oxygen. The benefits of supplemental oxygen would lead to reduced risk of morbidity and mortality in the setting of recent Covid infection. I would anticipate that she will need the oxygen for a short while and should continue to improve. Ubaldo Melendez MD - Patient Instructions Diet: Regular Diet as Tolerated Activity: As Tolerated Showering/Bathing: May Shower Other/Special Instructions: 1. You were in the hospital for management of COVID- 19 infection with pneumonia and acute respiratory failure with hypoxia. Your condition has been improving with a combination of steroids, remdesivir and supplemental oxygenation. Your condition has improved greatly during the course of the hospital stay. You do not currently require oxygen at rest but do desaturate with activity and would benefit from home oxygen while you are act akilah. I would encourage you to take 81 mg of aspirin daily for the next 2 weeks to help reduce your risk of blood clots. You may increase your activity as tolerated. Please seek medical attention if you develop fever greater than 101, sudden worsening of shortness of breath, chest pain or profound weakness. 2. Continue your usual home medications as previously prescribed. 3. You should quarantine until March 08. At that time you may return to your usual activities. 4. You may return to work on March 13. You may require reduced hours at the time of return depending on how you recover over the next week. 5. Follow up with Dr. Saini as scheduled. - Discharge Plan *PRESCRIPTION DRUG MONITORING PROGRAM REVIEWED*: Not Applicable *COPY OF PRESCRIPTION DRUG MONITORING REPORT IN PATIENT JESSICA: Not Applicable Prescriptions/Med Rec: Aspirin [Halfprin] 81 mg PO DAILY #14 tab.ec Home Medications: Home Meds Acetaminophen [Tylenol Extra Strength] 1,000 mg PO Q6H PRN 12/05/20 [History] Ascorbic Acid [Vitamin C] 1,000 mg PO DAILY 02/23/21 [History] Casirivimab/Imdevimab [Regen-Cov 600-600 mg/10Ml (Eua)] 10 ml IV ASDIRECTED 02/23/21 [History] Cyanocobalamin (Vitamin B12) [Vitamin B12] 2,500 mcg SL DAILY 02/23/21 [History] Zinc 50 mg PO DAILY PRN 02/23/21 [History] Timolol Maleate/PF [Timolol Maleate 0.5% Eye Drop] 1 drop EYERT DAILY 02/24/21 [History] Aspirin [Halfprin] 81 mg PO DAILY #14 tab.ec 03/05/21 [Rx] Oxygen Therapy Mode: Nasal Cannula Oxygen Flow Rate (L/min): 2 (with activity ) Patient Handouts: Fall Prevention in the Home, Adult, [id number], COVID-19 Referrals: Byron Saini MD [Primary Care Provider] - 03/14/21 1:30 pm (Arrive 15 minutes early to register for your appointment.) - Discharge Summary/Plan Comment DC Time >30 min.: Yes Total # of Minutes for Discharge Time: 40-set up home oxygen - Patient Data Vitals - Most Recent: Last Vital Signs Temp 36.6 C 03/05/21 11:00 Pulse 74 03/05/21 11:00 Resp 16 03/05/21 11:00 BP 128/76 03/05/21 11:00 Pulse Ox 91 L 03/05/21 12:45 Weight - Most Recent: 64.41 kg I&O - Last 24 hours: Intake & Output 03/04/21 03/05/21 03/05/21 22:59 06:59 14:59 Intake Total 1080 480 840 Output Total 800 1000 Balance 280 480 -160 Med Orders - Current: Current Medications Acetaminophen (Acetaminophen 325 Mg Tab) 650 mg PO Q4H PRN PRN Reason: analgesia/fever Last Admin: 03/01/21 19:57 Dose: 650 mg Documented by: Benzonatate (Benzonatate 100 Mg Cap) 100 mg PO TID PRN PRN Reason: Cough Calcium Carbonate/Glycine (Calcium Carbonate 500 Mg Tab.Chew) 500 mg PO Q2H PRN PRN Reason: Indigestion Last Admin: 02/27/21 21:06 Dose: 500 mg Documented by: Cyanocobalamin (Cyanocobalamin (Vitamin B12) 1,000 Mcg Tab) 2,500 mcg PO DAILY FIDENCIO Last Admin: 03/05/21 08:15 Dose: 2,500 mcg Documented by: Dexamethasone (Dexamethasone 2 Mg Tab) 6 mg PO BEDTIME FIDENCIO Last Admin: 03/04/21 21:16 Dose: 6 mg Documented by: Doxycycline Hyclate (Doxycycline 100 Mg Cap) 100 mg PO BID [facility] Last Admin: 03/05/21 08:16 Dose: 100 mg Documented by: Enoxaparin Sodium (Enoxaparin 40 Mg/0.4 Ml Syringe) 40 mg SUBCUT BEDTIME [facility] Last Admin: 03/04/21 21:17 Dose: 40 mg Documented by: Guaifenesin/Dextromethorphan (Guaifenesin/Dextromethorphan 100-10 Mg/5 Ml Soln 10 Ml Cup) 10 ml PO Q4H PRN PRN Reason: Cough Sodium Chloride (Sodium Chloride 0.9% 10 Ml Syringe) 10 ml FLUSH ASDIRECTED PRN PRN Reason: Keep Vein Open Last Admin: 02/23/21 20:24 Dose: 10 ml Documented by: Timolol Maleate (Timolol Maleate 0.5% Ophth Soln 5 Ml Bottle) 0 ml EYERT DAILY [facility] Last Admin: 03/05/21 08:15 Dose: 1 drop Documented by: Discontinued Medications Ciprofloxacin (Ciprofloxacin 500 Mg Tab) 500 mg PO ONETIME ONE Stop: 02/23/21 19:43 Last Admin: 02/23/21 20:24 Dose: 500 mg Documented by: Dexamethasone (Dexamethasone 4 Mg/Ml Sdv) 8 mg IVPUSH ONETIME ONE Stop: 02/23/21 19:55 Last Admin: 02/23/21 20:24 Dose: 8 mg Documented by: Dexamethasone (Dexamethasone 4 Mg/Ml Sdv) 6 mg IVPUSH Q24H FIDENCIO Stop: 03/06/21 21:01 Last Admin: 03/01/21 20:09 Dose: 6 mg Documented by: Dexamethasone (Dexamethasone 2 Mg Tab) 6 mg PO DAILY [facility] Last Admin: 03/02/21 20:24 Dose: 6 mg Documented by: Enoxaparin Sodium (Enoxaparin 30 Mg/0.3 Ml Syringe) 30 mg SUBCUT BEDTIME [facility] Last Admin: 02/24/21 21:12 Dose: 30 mg Documented by: Sodium Chloride (Normal Saline) 1,000 mls @ 1,000 mls/min IV .BOLUS ONE Stop: 02/23/21 19:40 Last Admin: 02/24/21 07:12 Dose: Not Given Documented by: Remdesivir 200 mg/ Sodium (Chloride) 250 mls @ 250 mls/hr IV ONETIME ONE Stop: 02/23/21 19:54 Last Admin: 02/23/21 21:02 Dose: 250 mls/hr Documented by: Remdesivir 100 mg/ Sodium (Chloride) 100 mls @ 100 mls/hr IV Q24H [facility] Stop: 02/27/21 21:59 Last Admin: 02/27/21 20:55 Dose: 100 mls/hr Documented by: Nitrofurantoin Macrocrystals (Nitrofurantoin Monohydrate/Macrocrystalline 100 Mg Cap) 100 mg PO BID [facility] Stop: 03/01/21 21:01 Last Admin: 02/28/21 09:04 Dose: 100 mg Documented by:
== END 2021-03-05 16:25 | disposition home or self-care (01) | DRG 137 ==
LOC: JP.ED 18:14 → JP.2SS 02-24 13:57
PROVIDERS: ADMIT Internal Medicine; ATTEND Internal Medicine
PROC: XW033E5 Introduction of Remdesivir Anti-infective into Peripheral Vein, Percutaneous Approach, New Technology Group 5 (ICD-10-PCS; principal; 2021-02-24)
PROC: 3E0333Z Introduction of Anti-inflammatory into Peripheral Vein, Percutaneous Approach (ICD-10-PCS; 2021-02-24)
PROC: 5A0955A Assistance with Respiratory Ventilation, Greater than 96 Consecutive Hours, High Flow/Velocity Cannula (ICD-10-PCS; 2021-02-27)
PROC: 3E0DX3Z Introduction of Anti-inflammatory into Mouth and Pharynx, External Approach (ICD-10-PCS; 2021-03-02)
DX: U07.1 COVID-19 (principal); J12.82 Pneumonia due to coronavirus disease 2019; J96.01 Acute respiratory failure with hypoxia; N39.0 Urinary tract infection, site not specified; B96.89 Other specified bacterial agents as the cause of diseases classified elsewhere; E86.0 Dehydration; N17.9 Acute kidney failure, unspecified; N18.9 Chronic kidney disease, unspecified; H54.7 Unspecified visual loss; I12.9 Hypertensive chronic kidney disease with stage 1 through stage 4 chronic kidney disease, or unspecified chronic kidney disease; Z88.2 Allergy status to sulfonamides; Z91.041 Radiographic dye allergy status; Z90.710 Acquired absence of both cervix and uterus; Z79.899 Other long term (current) drug therapy
CPT/HCPCS: 36415; 71045; 71045-26; 80048; 80053; 80076; 81001; 83605; 84145; 85027; 85379; 86140; 94762; 96374; 99285-25; A9270-GY; J1100; J1650; J7030; J7050; J8540